=== PATIENT | female | born 1930 | race Two or more races ===

== ENCOUNTER 2016-12-16 22:06 | Inpatient (IN) | payer MEDICARE, MEDICAID ==
[~2016-12-16] VITALS: Ht 152.4 cm; Wt 63.0 kg
--- NOTE | 2016-12-16 01:00 | NUR ---
Patient complaining of pain at surgical site with pain scale of 10/10. Med Recon still not done. Called [facility] and spoke to Dr. Gibson who is section maintainer. Made aware of patient c/o pain. Went over all patients medications with MD and was given verbal order to continue all meds. Addendum: 12/17/16 at 0702 by JAJA PARRA RN Correction: Spoke with Dr. Gibson on 12/17 @ 1:00am
[2016-12-16 21:30] VITALS: BP 152/80
--- NOTE | 2016-12-16 21:30 | NUR ---
Patient admitted to unit via gurney with [facility] from [facility]. Received report from AYLIN Velasquez in ED. Patient with admitting diagnosis of Femur fracture, S/P surgery. Patient is alert and oriented. Verbally responsive. Able to make needs known. Denies any pain and discomfort at this time. No acute distress. No SOB. On room air. Son at bedside. Surgical site is clean and intact. No redness noted at site. No s/s of infection. Dressing is clean and intact. Skin is warm and dry to touch. Bruising noted around surgical site and on pubic area. Rash noted on right side of groin. No edema noted on bilateral extremities. Kept clean and dry. All needs attended to promptly. Call light within reach. Will continue to monitor.
--- NOTE | 2016-12-16 22:06 | NUR ---
Dr. Garza made aware of new admission and med reconciliation and said he will take care of it.
[2016-12-16] MEDS ORDERED: LEVO75TA7 PO (22:48)
[2016-12-16] MEDS ORDERED: TRAM50TA2 PO (22:48)
[2016-12-16] MEDS ORDERED: CLON0.1T PO (22:48)
[2016-12-16] MEDS ORDERED: SENN-18 PO (22:48)
[2016-12-16] MEDS ORDERED: OXYC-128 PO (22:48)
[2016-12-16] MEDS ORDERED: EZET10TA13 PO (22:48)
[2016-12-16] MEDS ORDERED: CLOP75TA33 PO (22:48)
[2016-12-16] MEDS ORDERED: METO-302 PO (22:48)
[2016-12-16] MEDS ORDERED: LOSA1TAB3 PO (22:48)
[2016-12-16] MEDS ORDERED: FENO145T20 PO (22:48)
[2016-12-16] MEDS ORDERED: DOCU100C36 PO (22:48)
[2016-12-16] MEDS ORDERED: SIMV20TA6 PO (22:48)
[2016-12-16] MEDS ORDERED: MAGN400O6 PO (22:48)
[2016-12-16] MEDS ORDERED: ACET-2154 PO (23:14)
[2016-12-17] MEDS: OXYCODONE/APAP 5-325 MG TABLET PO PRN ×2 (00:54→20:31)
[2016-12-17] MEDS ORDERED: OXYCODONE/APAP 5-325 MG TABLET ONE (01:05)
[2016-12-17] MEDS ORDERED: CLONIDINE HCL 0.1 MG TABLET PO PRN (07:30)
[2016-12-17] MEDS ORDERED: MAGNESIUM HYDROXIDE 30 ML LIQUID UDC PO PRN (07:30)
[2016-12-17 08:01] VITALS: BP 132/76
[2016-12-17] MEDS: DOCUSATE SODIUM 100 MG CAPSULE PO SCH ×2 (08:49→17:19)
[2016-12-17] MEDS: METOPROLOL SUCCINATE XL 25 MG TAB.SR.24H PO SCH (08:49)
[2016-12-17] MEDS: EZETIMIBE 10 MG TABLET PO SCH (08:50)
[2016-12-17] MEDS: LOSARTAN POTASSIUM 50 MG TABLET PO SCH (08:50)
[2016-12-17] MEDS: CLOPIDOGREL 75 MG TABLET PO SCH (08:50)
[2016-12-17] MEDS: HYDROCHLOROTHIAZIDE 12.5 MG CAPSULE PO SCH (08:50)
[2016-12-17] MEDS: LEVOTHYROXINE SODIUM 75 MCG TABLET PO SCH (08:54)
[2016-12-17] MEDS ORDERED: Medication Not On Formulary EA (Losartan/Hydrochlorothiazide (Hyzaar 50-12.5 Tablet) 1 E PO SCH (09:00)
[2016-12-17] MEDS: FENOFIBRATE NANOCRYSTALLIZED 145 MG TABLET PO SCH (12:08)
[2016-12-17] MEDS: ACETAMINOPHEN 325 MG TABLET PO PRN (12:33)
[2016-12-17] MEDS ORDERED: BISACODYL 10 MG SUPP.RECT RC PRN (18:30)
[2016-12-17] MEDS ORDERED: FLEET ENEMA 133 ML BOTTLE RC PRN (18:30)
--- NOTE | 2016-12-17 18:34 | NUR ---
pt assessed. pt continues to have constipation. pt given stool softeners. pt had small bowel movement. pt continues to ask for digital removal. asked dk for orders. fleet enema and bisacodyl suppository. pt had elevated bp during the day. pt given bp meds. other vitals stable. pt ate kosher food and diet adjusted to culture. pt had ot pt eval. pt is min assist in ambulating and mod assist on transfers. pt had good mobility. pt able to call for help. pt instructed to use call light whn needed. no signs of acute distress. will endorse to naval designer nurse.
--- NOTE | 2016-12-17 19:30 | NUR ---
RECEIVED PATIENT FROM DAY SHIFT NURSE. REPORT GIVEN AT BEDSIDE. PATIENT LYING IN BED WITH FAMILY MEMBER AT BEDSIDE. A/O WITH NO SIGNS OF PAIN OR DISTRESS. CALL LIGHT PLACED WITHIN REACH OF PATIENT. WILL CONTINUE TO MONITOR PATIENT THROUGH OUT SHIFT.
[2016-12-17] MEDS: SIMVASTATIN 20 MG TABLET PO SCH (20:31)
[2016-12-17] MEDS: SENNOSIDES 1 TABLET PO PRN (20:32)
[2016-12-17 20:56] VITALS: BP 154/85
[2016-12-18] MEDS: LEVOTHYROXINE SODIUM 75 MCG TABLET PO SCH (05:58)
--- NOTE | 2016-12-18 06:30 | NUR ---
pt s/p ORIF LEFT HIP.medicated with x1 percocet for pain, left hip swollen and bruising. uses bedpan to void,no bm overnight, vss, afebrile, all needs attended, call light at reached.
[2016-12-18 07:13] LABS: BASOPHILS % (AUTO) 0.3 % (0.0-2.0); EOSINOPHILS # (AUTO) 0.2 K/uL (0.0-0.7); EOSINOPHILS % (AUTO) 3.6 % (0.0-7.0); HEMATOCRIT 26.8 % (37-47); HEMOGLOBIN 9.1 G/DL (12.0-16.0); LYMPHOCYTES # (AUTO) 1.7 K/UL (0.8-4.8); LYMPHOCYTES % (AUTO) 28.5 % (20.5-51.5); MEAN CORPUSCULAR HEMOGLOBIN 29.8 UUG (27.0-31.0); MEAN CORPUSCULAR HGB CONC 34 g/dL (32.0-37.0); MEAN CORPUSCULAR VOLUME 88.3 FL (81.0-99.0); MONOCYTES # (AUTO) 0.6 K/UL (0.1-1.30); MONOCYTES % (AUTO) 9.4 % (0.0-11.0); NEUTROPHILS # (AUTO) 3.6 K/UL (1.8-8.9); NEUTROPHILS % (AUTO) 58.2 % (38.5-71.5); PLATELET COUNT (AUTO) 225 K/UL (150-450); RED BLOOD CELL COUNT(AUTO) 3.04 MIL/UL (4.2-5.4); WHITE BLOOD COUNT (AUTO) 6.1 K/UL (4.0-11.2)
[2016-12-18 07:27] LABS: THYROID STIMULATING HORMONE 8.085 mIU/mL (0.358-3.740)
[2016-12-18 07:58] LABS: ALANINE AMINOTRANSFERASE 28 U/L (14-59); ALKALINE PHOSPHATASE 56 U/L (50-136); ASPARTATE AMINOTRANSFERASE 22 U/L (15-37); BILIRUBIN,TOTAL 1.3 mg/dL (0.2-1.0); CARBON DIOXIDE 28 mmol/L (21-32); CHLORIDE 104 mmol/L (98-107); CHOLESTEROL 188 mg/dL (<200); CREATININE 0.7 mg/dL (0.6-1.3); GLUCOSE 96 mg/dL (74-106); HDL CHOLESTEROL 72 mg/dL (40-60); MAGNESIUM 1.4 mg/dL (1.8-2.4); PHOSPHOROUS 3.9 mg/dL (2.5-4.9); POTASSIUM 3.5 mmol/L (3.5-5.1); TOTAL PROTEIN, SERUM 5.7 g/dL (6.4-8.2); TRIGLYCERIDES 134 MG/DL (30-150); UREA NITROGEN, BLOOD 16 mg/dL (7-18)
[2016-12-18 08:22] VITALS: BP 156/92
[2016-12-18] MEDS: FENOFIBRATE NANOCRYSTALLIZED 145 MG TABLET PO SCH (08:30)
[2016-12-18] MEDS: DOCUSATE SODIUM 100 MG CAPSULE PO SCH ×2 (08:30→17:00)
[2016-12-18] MEDS: CLOPIDOGREL 75 MG TABLET PO SCH (08:30)
[2016-12-18] MEDS: HYDROCHLOROTHIAZIDE 12.5 MG CAPSULE PO SCH (08:30)
[2016-12-18] MEDS: EZETIMIBE 10 MG TABLET PO SCH (08:30)
[2016-12-18] MEDS: METOPROLOL SUCCINATE XL 25 MG TAB.SR.24H PO SCH (08:31)
[2016-12-18] MEDS: LOSARTAN POTASSIUM 50 MG TABLET PO SCH (08:31)
[2016-12-18] MEDS ORDERED: BISACODYL 10 MG SUPP.RECT RC PRN (09:45)
[2016-12-18] MEDS ORDERED: MAGNESIUM OXIDE 400 MG TABLET PO ONE (12:15)
[2016-12-18] MEDS ORDERED: POTASSIUM CHLORIDE 20 MEQ TAB.PRT.SR PO ONE (12:15)
[2016-12-18] MEDS ORDERED: METOPROLOL SUCCINATE XL 25 MG TAB.SR.24H PO ONE (12:18)
[2016-12-18] MEDS: OXYCODONE/APAP 5-325 MG TABLET PO PRN (13:25)
--- NOTE | 2016-12-18 18:35 | NUR ---
pt seen and continued to complain about stomach ache. pt given suppository. no impaction felt upon insertion. pt had bowel accident with liquid consistency. pt dressing changed. incision red. applied betadine and applied dressing. pt given percocet for pain. continued to monitor and assisted to need. pt continues to be anxious. bruises started to resolve. will endorse new orders to night [facility] nurse.
--- NOTE | 2016-12-18 19:00 | NUR ---
RECEIVED PT SITTING ON CHAIR. AAO X4. FAMILY ON BEDSIDE. NO SIGNS OF ACUTE DISTRESS NOTED. SAFETY MEASURES MAINTAINED. CALL LIGHT WITHIN REACH. WILL CONTINUE TO MONITOR.
[2016-12-18 20:41] VITALS: BP 126/68
[2016-12-18] MEDS: ACETAMINOPHEN 325 MG TABLET PO PRN (21:26)
[2016-12-18] MEDS: SIMVASTATIN 20 MG TABLET PO SCH (21:26)
--- NOTE | 2016-12-19 05:32 | NUR ---
PT SLEPT COMFORTABLY IN BED. WOKE UP ONCE TO USE THE RESTROOM AND PERFORMED HYGIENE. PT ABLE TO MAKE NEEDS KNOWN. NO SIGNS OF ACUTE DISTRESS NOTED. NO C/O OF PAIN. VITAL SIGNS WNL. SAFETY MEASURES MAINTAINED. CALL LIGHT WITHIN REACH. CONTINUE TO MONITOR.
[2016-12-19] MEDS: LEVOTHYROXINE SODIUM 88 MCG TABLET PO SCH (06:23)
[2016-12-19] MEDS ORDERED: LEVOTHYROXINE SODIUM 75 MCG TABLET PO SCH (07:00)
[2016-12-19 08:38] VITALS: BP 133/72
[2016-12-19] MEDS: HYDROCHLOROTHIAZIDE 12.5 MG CAPSULE PO SCH (09:50)
[2016-12-19] MEDS: LOSARTAN POTASSIUM 50 MG TABLET PO SCH (09:51)
[2016-12-19] MEDS: CLOPIDOGREL 75 MG TABLET PO SCH (09:51)
[2016-12-19] MEDS: OXYCODONE/APAP 5-325 MG TABLET PO PRN (09:51)
[2016-12-19] MEDS: EZETIMIBE 10 MG TABLET PO SCH (09:51)
[2016-12-19] MEDS: METOPROLOL SUCCINATE XL 50 MG TAB.SR.24H PO SCH (09:52)
[2016-12-19] MEDS: DOCUSATE SODIUM 100 MG CAPSULE PO SCH ×2 (09:52→18:00)
[2016-12-19] MEDS: ACETAMINOPHEN 325 MG TABLET PO PRN (14:06)
--- NOTE | 2016-12-19 14:19 | NUR ---
DAILY NOTE SON KEV SPOKE TO ME AND STATES THAT THEY WANT TO TAKE HER HOME FOR THE [facility] ON Tuesday12/22/16 AROUND 1700 AND BRING HER BACK AROUND 2200. THEY WANT TO TAKE HER TO HER SON CHUYITA'S HOME [address] [place] [address]. I INFORMED HIM IT HAS TO BE CLEARED BY THE MD BUT IS POSSIBLE. KEV PHONE #[phone]
--- NOTE | 2016-12-19 19:30 | NUR ---
RECEIVED PATIENT FROM DAY SHIFT NURSE. SHIFT REPORT GIVEN AT BEDSIDE. FAMILY AT BEDSIDE. PATIENT A/O WITH NO SIGNS OF PAIN OR DISTRESS. PERTINENT ASSESSMENTS DONE. CALL LIGHT PLACED WITHIN REACH OF PATIENT. WILL CONTINUE TO MONITOR PATIENT THROUGH OUT SHIFT.
[2016-12-19 20:14] VITALS: BP 128/66
[2016-12-19] MEDS: SIMVASTATIN 20 MG TABLET PO SCH (20:16)
[2016-12-20] MEDS: LEVOTHYROXINE SODIUM 88 MCG TABLET PO SCH (06:22)
--- NOTE | 2016-12-20 06:59 | NUR ---
PATIENT SLEPT COMFORTABLY THROUGH OUT SHIFT. NO SIGNS OF PAIN OR DISTRESS. ALL MEDICATIONS GIVEN ORDERED. ALL NEEDS ATTENDED THROUGH OUT SHIFT. SHIFT REPORT TO DAY SHIFT NURSE.
[2016-12-20 07:30] VITALS: BP 139/81
--- NOTE | 2016-12-20 07:45 | NUR ---
PT WAS SEEN BY DR. NORRIS. PT CONTINUES TO NOT HAVE BOWEL MOVEMENT. DR. NORRIS ORDERED TO GIVE SENNA AND SUPPOSITORY BISACODYL TONIGHT. PT'S REQUEST TO GET OUT ON PASS ON 12/22/16 FROM 1700 TO 2200 FOR [facility] HAS ALSO BEEN APPROVED. Addendum: 12/21/16 at 0250 by Darcy Cruz RN NOTE IS FOR 12/20/2016 TIME: 1944
[2016-12-20 07:51] LABS: ALANINE AMINOTRANSFERASE 26 U/L (14-59); ALKALINE PHOSPHATASE 68 U/L (50-136); ASPARTATE AMINOTRANSFERASE 21 U/L (15-37); BILIRUBIN,TOTAL 1.1 mg/dL (0.2-1.0); CARBON DIOXIDE 26 mmol/L (21-32); CHLORIDE 103 mmol/L (98-107); CREATININE 0.6 mg/dL (0.6-1.3); GLUCOSE 90 mg/dL (74-106); MAGNESIUM 1.7 mg/dL (1.8-2.4); PHOSPHOROUS 3.6 mg/dL (2.5-4.9); POTASSIUM 3.9 mmol/L (3.5-5.1); TOTAL PROTEIN, SERUM 5.8 g/dL (6.4-8.2); UREA NITROGEN, BLOOD 19 mg/dL (7-18)
--- NOTE | 2016-12-20 08:00 | NUR ---
Received patient awake, alert and oriented x4. Assisted to bathroom. Able to transfer with minimum assistance. Tolerated breakfast well.
[2016-12-20 08:21] LABS: RED BLOOD CELL COUNT(AUTO) 2.92 MIL/UL (4.2-5.4); WHITE BLOOD COUNT (AUTO) 6.9 K/UL (4.0-11.2)
[2016-12-20 08:22] LABS: EOSINOPHILS % (AUTO) 3.8 % (0.0-7.0); HEMOGLOBIN 8.8 G/DL (12.0-16.0); LYMPHOCYTES % (AUTO) 33.5 % (20.5-51.5); MEAN CORPUSCULAR HEMOGLOBIN 30.1 UUG (27.0-31.0); MEAN CORPUSCULAR HGB CONC 34 g/dL (32.0-37.0); MEAN CORPUSCULAR VOLUME 89.1 FL (81.0-99.0); MONOCYTES % (AUTO) 8.4 % (0.0-11.0); PLATELET COUNT (AUTO) 239 K/UL (150-450)
[2016-12-20 08:23] LABS: BASOPHILS % (AUTO) 0.3 % (0.0-2.0)
[2016-12-20] MEDS: DOCUSATE SODIUM 100 MG CAPSULE PO SCH ×2 (09:00→17:11)
[2016-12-20] MEDS: LOSARTAN POTASSIUM 50 MG TABLET PO SCH (09:46)
[2016-12-20] MEDS: HYDROCHLOROTHIAZIDE 12.5 MG CAPSULE PO SCH (09:46)
[2016-12-20] MEDS: CLOPIDOGREL 75 MG TABLET PO SCH (09:46)
[2016-12-20] MEDS: ACETAMINOPHEN 325 MG TABLET PO PRN ×2 (09:47→17:11)
[2016-12-20] MEDS: METOPROLOL SUCCINATE XL 50 MG TAB.SR.24H PO SCH (09:47)
[2016-12-20] MEDS: EZETIMIBE 10 MG TABLET PO SCH (09:47)
--- NOTE | 2016-12-20 10:00 | NUR ---
Pain over surgical site left femur noted rated as 6/10. Tylenol PRN given. Up with NAVAL AIRCREWMAN HELICOPTER for shower. Up with occupational therapy. Tolerating therapy well.
[2016-12-20] MEDS ORDERED: MAGNESIUM OXIDE 400 MG TABLET PO ONE (13:15)
--- NOTE | 2016-12-20 13:54 | NUR ---
Dressing changed, wound care done. Wound healing well.
--- NOTE | 2016-12-20 17:30 | NUR ---
Patient complained of pain rated as 6/10 over left femur. PRN Tylenol given. Up in chair for dinner. Call light within reach
--- NOTE | 2016-12-20 19:00 | NUR ---
RECEIVED PT RESTING IN BED. AAO X4. NO ACUTE DISTRESS NOTED. SAFETY MEASURES MAINTAINED. CALL LIGHT WITHIN REACH. CONTINUE TO MONITOR.
--- NOTE | 2016-12-20 19:45 | NUR ---
PT WAS SEEN BY DR. NORRIS. PT CONTINUES TO NOT HAVE BOWEL MOVEMENT. DR. NORRIS ORDERED TO GIVE SENNA AND SUPPOSITORY BISACODYL TONIGHT. PT'S REQUEST TO GET OUT ON PASS ON 12/22/16 FROM 1700 TO 2200 FOR [facility] HAS ALSO BEEN APPROVED.
[2016-12-20 20:24] VITALS: BP 141/83
[2016-12-20] MEDS: SENNOSIDES 1 TABLET PO PRN (20:35)
[2016-12-20] MEDS: SIMVASTATIN 20 MG TABLET PO SCH (20:35)
--- NOTE | 2016-12-20 20:37 | NUR ---
PT WAS GIVEN SUPPOSITORY. NO IMPACTION FELT DURING INSERTION. NO ACUTE DISTRESS NOTED. WILL CONTINUE TO MONITOR.
--- NOTE | 2016-12-21 05:45 | NUR ---
PT INTERMITTENTLY SLEPT T/O THE NIGHT. WOKE UP THREE TIMES; TWICE TO USE THE RESTROOM AND ONCE TO CHANGE POSITION. NO BOWEL MOVEMENT OF THIS TIME. WILL ENDORSE THIS CONCERN TO DAY SHIFT RN. DRESSING ON THE LEFT HIP DRY, CLEAN, AND INTACT. NO ACUTE DISTRESS NOTED. NO C/O OF PAIN. V/S WNL. ALL NEEDS ATTENDED T/O THE SHIFT. SAFETY MEASURES MAINTAINED. CALL LIGHT WITHIN REACH. CONTINUE TO MONITOR.
[2016-12-21] MEDS: LEVOTHYROXINE SODIUM 88 MCG TABLET PO SCH (06:19)
[2016-12-21] MEDS: SENNOSIDES/DOCUSATE SODIUM TABLET PO SCH ×2 (06:19→17:00)
--- NOTE | 2016-12-21 07:35 | NUR ---
PATIENT NOTED IN BED RESTING, REPORT RECEIVED FROM ATTENDING RADIOLOGIST NURSE, NO SIGNS OF DISTRESS NOTED, STATES PAIN LEVEL IS A 6/10, CALL LIGHT IN REACH, BED LOCKED AND IN LOWEST POSITION, STATES SHE WOULD LIKE TO TAKE MORNING MEDICATIONS AFTER SHE EATS BREAKFAST.
[2016-12-21 08:08] VITALS: BP 137/80
[2016-12-21] MEDS: HYDROCHLOROTHIAZIDE 12.5 MG CAPSULE PO SCH (08:32)
[2016-12-21] MEDS: CLOPIDOGREL 75 MG TABLET PO SCH (08:34)
[2016-12-21] MEDS: METOPROLOL SUCCINATE XL 50 MG TAB.SR.24H PO SCH (08:34)
[2016-12-21] MEDS: LOSARTAN POTASSIUM 50 MG TABLET PO SCH (08:34)
[2016-12-21] MEDS: EZETIMIBE 10 MG TABLET PO SCH (08:35)
[2016-12-21] MEDS: OXYCODONE/APAP 5-325 MG TABLET PO PRN (08:35)
[2016-12-21] MEDS ORDERED: MIRALAX 17 GM POWD.PACK PO SCH (09:00)
[2016-12-21] MEDS: ACETAMINOPHEN 325 MG TABLET PO PRN ×2 (14:30→22:05)
--- NOTE | 2016-12-21 19:10 | NUR ---
PATIENT LAYING IN BED, REPORT GIVEN TO BENEFIT DIRECTOR NURSE, FAMILY AT BED SIDE, NO COMPLAINTS OF PAIN AT THIS TIME, RESTING IN BED, NO SIGNS OF DISTRESS.
--- NOTE | 2016-12-21 19:54 | NUR ---
RECEIVED PATIENT AWAKE ALERT AND ORIENTED X4. DAUGHTER AT BEDSIDE. NEEDS ATTENDED. LEFT HIP DRESSING CLEAN DRY AND INTACT. NO ACUTE DISTRESS NOTED. DENIES ANY PAIN AT THIS TIME. MAKING NEEDS KNOWN. CONTINENT OF BOWEL AND BLADDER.
[2016-12-21 20:36] VITALS: BP 128/66
[2016-12-21] MEDS: SIMVASTATIN 20 MG TABLET PO SCH (20:36)
[2016-12-22] MEDS: SENNOSIDES/DOCUSATE SODIUM TABLET PO SCH ×2 (05:37→18:09)
[2016-12-22] MEDS: LEVOTHYROXINE SODIUM 88 MCG TABLET PO SCH (05:42)
--- NOTE | 2016-12-22 05:52 | NUR ---
quiet night. had tylenol 650 mg po given for pain on the left hip. slept well most of the shift. will monitor patient. kept comfortable. no acute distress noted. voiding without any difficulty.
[2016-12-22 07:30] VITALS: BP 166/87
[2016-12-22] MEDS: EZETIMIBE 10 MG TABLET PO SCH (09:08)
[2016-12-22] MEDS: CLOPIDOGREL 75 MG TABLET PO SCH (09:09)
[2016-12-22] MEDS: METOPROLOL SUCCINATE XL 50 MG TAB.SR.24H PO SCH (09:09)
[2016-12-22] MEDS: HYDROCHLOROTHIAZIDE 12.5 MG CAPSULE PO SCH (09:09)
[2016-12-22] MEDS: LOSARTAN POTASSIUM 50 MG TABLET PO SCH (09:10)
--- NOTE | 2016-12-22 13:42 | NUR ---
Interdisciplinary Rehab Summary
--- NOTE | 2016-12-22 14:11 | NUR ---
Correctional Program Officer Bio: SW met with with pt at [facility] to assess for needs and provide support. Pt is an 86-year-old female who sustained a fracture of her left femur mid shaft. Pt was admitted to ARU due to functional decline and impaired mobility. Per pt's chart, pt's premorbid level of function was independent. Pt reported that she is still experiencing pain from the surgery. Psych: Pt appeared alert and oriented x4 during interview. She presented as somewhat anxious, but is cooperative and pleasant. Pt stated that she feels "okay" and is happy to be in the hospital. Pt has been in the hospital since December 16, 2016. There is no mental illness history reported. Pt appears to be coping well with hospital stay. Social: Pt is and has 5 children. Pt's 26 years ago. Pt's [id number] was present at beside during interview. Pt reported that she has many grandchildren and that they will be visiting. Pt stated that she feels very supported. Goals: Pt reported that she would like to improve her walking. Pt stated that she does not like her walker. SS: SW engaged in active listening. SW provided emotional support and counseling. SW will continue to assess for needs and provide community referrals if needed. SW will encourage pt to comply with rehab goals.
[2016-12-22] MEDS: DICYCLOMINE HCL 10 MG CAPSULE PO SCH ×3 (14:13→23:47)
[2016-12-22] MEDS: ACETAMINOPHEN 325 MG TABLET PO PRN ×2 (14:27→20:32)
--- NOTE | 2016-12-22 18:50 | NUR ---
PATIENT LYING IN BED WITH FAMILY AT BED SIDE, NO COMPLAINTS OF PAIN AT THIS TIME, NO SIGNS OF DISTRESS NOTED, CALL LIGHT IN REACH, BED LOCKED AND IN LOWEST POSITION, NEW ORDERS FOR BENTYL FOR PATIENTS COMPLAINT OF STOMACH PAIN AND CONSTIPATION.
--- NOTE | 2016-12-22 19:30 | NUR ---
Received pt in bed, awake alert and oriented. Verbally responsive and able to make needs known. No acute distress noted. No complaints of pain or discomfort. All safety precautions and fall preventions maintained. Call light within reach. Will continue to monitor. Bed locked, in lowest position with side rails up x 2.
[2016-12-22] MEDS: SIMVASTATIN 20 MG TABLET PO SCH (20:32)
[2016-12-22 20:48] VITALS: BP 137/73
[2016-12-23] MEDS: ACETAMINOPHEN 325 MG TABLET PO PRN ×2 (02:35→10:48)
[2016-12-23] MEDS: LEVOTHYROXINE SODIUM 88 MCG TABLET PO SCH (06:37)
[2016-12-23] MEDS: SENNOSIDES/DOCUSATE SODIUM TABLET PO SCH ×2 (06:37→17:00)
[2016-12-23] MEDS: DICYCLOMINE HCL 10 MG CAPSULE PO SCH ×4 (06:37→23:59)
--- NOTE | 2016-12-23 07:20 | NUR ---
Pt slept well throughout shift. No acute distress noted. No further complaints of discomfort. Tolerated all medications well. All safety precautions and fall preventions maintained. Bed locked, in lowest position and side rails up x 2. Call light within reach.
--- NOTE | 2016-12-23 07:45 | NUR ---
Received patient awake, alert and oriented. Sitting in in chair ready for breakfast. Call light within reach. No complaints of pain/ discomfort at this time. Not in any form of distress.
[2016-12-23] MEDS: HYDROCHLOROTHIAZIDE 12.5 MG CAPSULE PO SCH (08:41)
[2016-12-23] MEDS: EZETIMIBE 10 MG TABLET PO SCH (08:41)
[2016-12-23] MEDS: METOPROLOL SUCCINATE XL 50 MG TAB.SR.24H PO SCH (08:41)
[2016-12-23] MEDS: CLOPIDOGREL 75 MG TABLET PO SCH (08:41)
[2016-12-23] MEDS: LOSARTAN POTASSIUM 50 MG TABLET PO SCH (08:41)
[2016-12-23 08:46] VITALS: BP 139/70
--- NOTE | 2016-12-23 10:48 | NUR ---
Up with occupational therapy. Facial grimacing on movements. Offered pain medications. PRN Tylenol given.
[2016-12-23] MEDS: NEOMY/BACITRAC/POLYMI OINT 28.35 GM TUBE TOP SCH ×2 (12:04→17:04)
--- NOTE | 2016-12-23 14:40 | NUR ---
Up with physical therapy. With pain over left leg, grimacing during movements rated pain as 8/10. Percocet given.
[2016-12-23] MEDS: OXYCODONE/APAP 5-325 MG TABLET PO PRN (14:42)
--- NOTE | 2016-12-23 19:27 | NUR ---
Received pt in bed, awake alert and oriented. Family member at bedside. No apparent distress noted. Denies pain or discomfort at this time. Pt is verbally responsive and able to make needs known. All safety measures and fall precautions maintained. Call light within reach. Bed locked, in lowest position and side rails up x 2. Will continue to monitor.
[2016-12-23 20:00] VITALS: BP 136/68
--- NOTE | 2016-12-23 20:30 | NUR ---
Dr. Lopez in to see pt. Removed dressing to see surgical site. New MD orders noted and carried out. Changed dressing as ordered, cleaned with saline and pat dry. Covered with Mepilex as ordered. Pt tolerated procedure well.
[2016-12-23] MEDS: SIMVASTATIN 20 MG TABLET PO SCH (20:50)
[2016-12-24] MEDS: ACETAMINOPHEN 325 MG TABLET PO PRN ×3 (00:34→20:35)
[2016-12-24] MEDS: DICYCLOMINE HCL 10 MG CAPSULE PO SCH ×4 (06:21→23:30)
[2016-12-24] MEDS: LEVOTHYROXINE SODIUM 88 MCG TABLET PO SCH (06:21)
[2016-12-24] MEDS: SENNOSIDES/DOCUSATE SODIUM TABLET PO SCH ×2 (06:21→17:29)
[2016-12-24] MEDS: HYDROCORTISONE 1% CREAM 30 GM TUBE TP PRN (06:22)
--- NOTE | 2016-12-24 07:05 | NUR ---
Pt slept well most of the shift. Tolerated PM medications well. AM medications given, but vomited x 1 yellow-clear emesis. V/S 146/72, 74, 18, 96%, 98.0 degrees. Denies pain or discomfort at this time. Dressing change done per MD order. Stockinette applied to prevent Mepilex from coming off. All safety measures and fall precautions maintained. Call light within reach. Endorsed to day shift nurse.
[2016-12-24 08:36] VITALS: BP 146/72
[2016-12-24] MEDS: NEOMY/BACITRAC/POLYMI OINT 28.35 GM TUBE TOP SCH ×2 (09:00→17:30)
[2016-12-24] MEDS: LOSARTAN POTASSIUM 50 MG TABLET PO SCH (09:00)
[2016-12-24] MEDS: CLOPIDOGREL 75 MG TABLET PO SCH (09:00)
[2016-12-24] MEDS: HYDROCHLOROTHIAZIDE 12.5 MG CAPSULE PO SCH (09:00)
[2016-12-24] MEDS: EZETIMIBE 10 MG TABLET PO SCH (09:01)
[2016-12-24] MEDS: METOPROLOL SUCCINATE XL 50 MG TAB.SR.24H PO SCH (09:01)
--- NOTE | 2016-12-24 11:38 | NUR ---
PT STABLE WHEN ASSESSED. BP SLIGHTLY ELEVATED. MEDS PROVIDED. PT ATE BREAKFAST. PT WENT TO THE BATHROOM WITH MINIMUM ASSIST. REASSESED WOUND SITE. REDNESS SEEN. WILL REAPPLY MEPILEX AND BATICARIN CREAM REQUESTED. PT REQUEST NOT TO HAVE LUNCH AND DINNER TRAY DELIVERED. PT COMPLAINS OF ITCHINESS ON SITE. WILL REAPPLY HYTONE CREAM. WILL CONTINUE TO MONITOR.
--- NOTE | 2016-12-24 12:04 | NUR ---
PT HAD XRAY HIP DONE IN AM. RESULTS: Left humeral shaft fracture status post internal fixation. No hardware fracture or loosening. Anatomic alignment of the fracture site with mild adjacent callus formation. WILL CONTINUE TO MONITOR FOR COMPLICATIONS.
--- NOTE | 2016-12-24 19:23 | NUR ---
pt stable throughtout shift. no signs of acute distress. pt continues to have an itch on incision site. site changed and applied antibiotic. pt complains of no stomach ache. assisted as needed. all meds taken. pt ate interminently throughout the day. pt continues to ask for help ask as needed. will endorse new orders to steel layer nurse.
--- NOTE | 2016-12-24 19:30 | NUR ---
Received pt on bed alert, awake and oriented x3. Able to make needs known. Family at bedside during this time. No acute distress noted. Breathing even and unlabored with normal respirations. Dressing on surgical site changed as ordered, pt tolerated procedure well. Assisted to the bathroom. Vital signs stable. Call light within reach. All needs attended. Will continue to monitor.
[2016-12-24 19:45] VITALS: BP 119/73
[2016-12-24] MEDS: SIMVASTATIN 20 MG TABLET PO SCH (20:35)
[2016-12-25] MEDS: OXYCODONE/APAP 5-325 MG TABLET PO PRN ×3 (00:49→16:18)
--- NOTE | 2016-12-25 06:07 | NUR ---
Pt slept well throughout the shift. Complained of 5/10 left hip pain, medicated with percocet as ordered. Verbalized relief. No apparent distress noted. Assisted to the bathroom x3. Safety precautions observed. All needs met.
[2016-12-25] MEDS: LEVOTHYROXINE SODIUM 88 MCG TABLET PO SCH (06:25)
[2016-12-25] MEDS: SENNOSIDES/DOCUSATE SODIUM TABLET PO SCH ×2 (06:25→17:30)
[2016-12-25] MEDS: DICYCLOMINE HCL 10 MG CAPSULE PO SCH ×4 (06:25→23:11)
[2016-12-25 06:36] LABS: BASOPHILS % (AUTO) 0.8 % (0.0-2.0); EOSINOPHILS # (AUTO) 0.2 K/uL (0.0-0.7); EOSINOPHILS % (AUTO) 3.3 % (0.0-7.0); HEMATOCRIT 25.7 % (31.2-41.9); LYMPHOCYTES # (AUTO) 2.1 K/uL (20.0-40.0); LYMPHOCYTES % (AUTO) 36.8 % (20.5-51.5); MEAN CORPUSCULAR HEMOGLOBIN 30.7 uug (24.7-32.8); MEAN CORPUSCULAR HGB CONC 35 g/dL (32.3-35.6); MEAN CORPUSCULAR VOLUME 88.3 fL (75.5-95.3); MONOCYTES # (AUTO) 0.4 K/uL (2.0-10.0); MONOCYTES % (AUTO) 7.6 % (0.0-11.0); NEUTROPHILS # (AUTO) 2.9 K/uL (1.8-8.9); NEUTROPHILS % (AUTO) 51.5 % (38.5-71.5); PLATELET COUNT (AUTO) 247 K/uL (179-408); RED BLOOD CELL COUNT(AUTO) 2.92 MIL/uL (3.63-4.92); WHITE BLOOD COUNT (AUTO) 5.7 K/uL (3.8-11.8)
[2016-12-25 07:09] LABS: CARBON DIOXIDE 26 mmol/L (21-32); CHLORIDE 103 mmol/L (98-107); CREATININE 0.6 mg/dL (0.6-1.3); GLUCOSE 92 mg/dL (74-106); POTASSIUM 3.7 mmol/L (3.5-5.1); UREA NITROGEN, BLOOD 17 mg/dL (7-18)
--- NOTE | 2016-12-25 07:40 | NUR ---
Received patient awake, alert and oriented. Sitting at chair. Ready for breakfast. Not in any form of distress.
[2016-12-25 08:00] VITALS: BP 131/80
[2016-12-25] MEDS: METOPROLOL SUCCINATE XL 50 MG TAB.SR.24H PO SCH (09:27)
[2016-12-25] MEDS: EZETIMIBE 10 MG TABLET PO SCH (09:27)
[2016-12-25] MEDS: CLOPIDOGREL 75 MG TABLET PO SCH (09:27)
[2016-12-25] MEDS: HYDROCHLOROTHIAZIDE 12.5 MG CAPSULE PO SCH (09:27)
[2016-12-25] MEDS: HYDROCORTISONE 1% CREAM 30 GM TUBE TP PRN (09:28)
[2016-12-25] MEDS: NEOMY/BACITRAC/POLYMI OINT 28.35 GM TUBE TOP SCH ×2 (09:28→17:29)
[2016-12-25] MEDS: LOSARTAN POTASSIUM 50 MG TABLET PO SCH (09:28)
--- NOTE | 2016-12-25 09:30 | NUR ---
Pain over surgical site and left knee. Rated as 8/10. PRN pain medication given.
--- NOTE | 2016-12-25 10:00 | NUR ---
Surgical dressing changed, wound more red. Informed Dr. Pham, Bactrim DS PO BID x 10 days ordered. Patient complained of nausea and medications feel like being stuck in throat, esophagram ordered.
[2016-12-25] MEDS ORDERED: OXYCODONE/APAP 5-325 MG TABLET PO PRN (17:00)
[2016-12-25] MEDS ORDERED: diphenhydrAMINE 25 MG CAP PO PRN (17:15)
[2016-12-25] MEDS: SULFAMETH/TRIMETH 800/160 MG TABLET PO SCH (17:30)
[2016-12-25] MEDS: OXYCODONE/APAP 5-325 MG TABLET PO SCH ×2 (17:32→20:22)
--- NOTE | 2016-12-25 17:33 | NUR ---
Still complaints of itching over surgical site. Dr Lopez informed, Benadryl prescribed and given.
--- NOTE | 2016-12-25 19:30 | NUR ---
PT ALERT AND ORIENTED IN BED. NO DISTRESS NOTED. COMPLAINING OF PAIN IN LEFT UPPER LEG. INCISION INTACT, DRESSING INTACT AND REINFORCED. SAFETY MAINTAINED. CALL LIGHT WITHIN REACH. WILL CONTINUE TO MONITOR.
[2016-12-25 20:00] VITALS: BP 141/71
[2016-12-25] MEDS: SIMVASTATIN 20 MG TABLET PO SCH (20:22)
[2016-12-26] MEDS: LEVOTHYROXINE SODIUM 88 MCG TABLET PO SCH (06:08)
[2016-12-26] MEDS: SENNOSIDES/DOCUSATE SODIUM TABLET PO SCH ×2 (06:08→17:00)
[2016-12-26] MEDS: DICYCLOMINE HCL 10 MG CAPSULE PO SCH ×4 (06:08→23:27)
--- NOTE | 2016-12-26 06:43 | NUR ---
PT ALERT AND ORIENTED IN BED. NO DISTRESS NOTED. DRESSINGS CHANGED. COMPLIANT WITH NURSING CARE AND MEDICATIONS. CALL LIGHT WITHIN REACH. SAFETY MAINTAINED.
[2016-12-26] MEDS: OXYCODONE/APAP 5-325 MG TABLET PO SCH ×2 (09:00→13:00)
[2016-12-26] MEDS: NEOMY/BACITRAC/POLYMI OINT 28.35 GM TUBE TOP SCH ×2 (09:20→17:36)
[2016-12-26] MEDS: SULFAMETH/TRIMETH 800/160 MG TABLET PO SCH ×2 (09:21→17:00)
[2016-12-26] MEDS: METOPROLOL SUCCINATE XL 50 MG TAB.SR.24H PO SCH (09:21)
[2016-12-26] MEDS: EZETIMIBE 10 MG TABLET PO SCH (09:21)
[2016-12-26] MEDS: HYDROCORTISONE 1% CREAM 30 GM TUBE TP PRN (09:21)
[2016-12-26] MEDS: CLOPIDOGREL 75 MG TABLET PO SCH (09:21)
[2016-12-26] MEDS: HYDROCHLOROTHIAZIDE 12.5 MG CAPSULE PO SCH (09:22)
[2016-12-26] MEDS: LOSARTAN POTASSIUM 50 MG TABLET PO SCH (09:23)
[2016-12-26 10:12] VITALS: BP 139/74
--- NOTE | 2016-12-26 13:00 | NUR ---
Patient was seen and examined by Dr. Pham with new orders of Zofran 4 mg 1 tab PO every 6 hours PRN for nausea/ vomiting and Pepcid 20 mg 1 tab PO Daily with patient and family at bedside. Informed Dr. Pham regarding family's request to call Dr. Sánchez (Surgeon).
[2016-12-26] MEDS: ACETAMINOPHEN 325 MG TABLET PO PRN ×2 (14:18→20:17)
[2016-12-26] MEDS: ONDANSETRON HCL 4 MG TABLET PO PRN ×2 (14:18→15:56)
--- NOTE | 2016-12-26 17:17 | NUR ---
DAILY NOTE PER MD NISA VILLELA TO D/C PERCOCET. GIVE TYLENOL FOR PAIN. PT NAUSEOUS MOST OF DAY . MOSTLY DRY HEAVED. 100ML OF EMESIS IN TOTAL FOR THE SHIFT. CLEAR IN COLOR WITH SMALL BIT OF FOOD FROM LUNCH. PT ONLY TOOK PAIN MED, ATE MINIMAL. WITH SIPS OF WATER. ZOFRAN GIVEN ORDERED NO MORE EMESIS SINCE THEN.
--- NOTE | 2016-12-26 17:38 | NUR ---
MEDICATION NOTE SHE REFUSED HER EVENING MEDS SAYS SHE DOES NOT WANT ANYTHING TO MAKE HER STOMACH UPSET RIGHT NOW. B/P STABLE 134/82. SHE STATES SHE IS FEELING BETTER. ATE 25% OF DINNER. IS TOLERATING IT WELL AT THIS TIME
--- NOTE | 2016-12-26 18:42 | NUR ---
MEAL NOTE FEELING NAUSEOUS MOST OF THE DAY TODAY. SM AMOUNT OF EMESIS. DRY HEAVING AND UNABLE TO EDWIGE MUCH FOOD. SHE ATE SMALL AMOUNTS AND TOOK SIPS OF WATER IN ATTEMPTS NOT TO IRRITATE HER STOMACH TOO MUCH. SHE IS NOW RESTING QUIETLY. Addendum: 12/26/16 at 1845 by Glenis Flores RN Amended: Links added.
[2016-12-26] MEDS: SIMVASTATIN 20 MG TABLET PO SCH (20:24)
--- NOTE | 2016-12-26 20:24 | NUR ---
RECEIVED PATIENT AAOX 4 FEELING NAUSEOUS BUT REFUSED TO TAKE ANY MEDICINES. COMPLAINED OF PAIN ON THE LEFT HIP TYLENOL 650 MG GIVEN. REFUSED TO TAKE SIMVASTATIN 20 MG. SHE SAID THAT WILL MAKE HER VOMIT.
[2016-12-26 20:49] VITALS: BP 135/56
[2016-12-26 20:54] VITALS: BP 135/56
--- NOTE | 2016-12-26 23:29 | NUR ---
REFUSED TO TAKE HER MEDS, SAYS SHE DONT NEED IT. MAKES HER SICK.
[2016-12-27] MEDS: ACETAMINOPHEN 325 MG TABLET PO PRN ×2 (06:23→22:06)
[2016-12-27] MEDS: ONDANSETRON HCL 4 MG TABLET PO PRN (06:23)
[2016-12-27] MEDS: DICYCLOMINE HCL 10 MG CAPSULE PO SCH ×3 (06:23→17:37)
[2016-12-27] MEDS: SENNOSIDES/DOCUSATE SODIUM TABLET PO SCH ×2 (06:24→17:36)
[2016-12-27] MEDS: LEVOTHYROXINE SODIUM 88 MCG TABLET PO SCH (06:24)
--- NOTE | 2016-12-27 06:33 | NUR ---
patient been up all night. says could'nt sleep. needs attended.refused meds. OOB in chair this morning. @0630 c/o of chestpain mid sternal, says on a scale of 1-10 its a 5/10. Vital signs taken and recorded. BP 124/73 HR 92 resp 18 temp 98.2 pulse ox 97% on RA.Assisted back in bed. Nursing airport skilled maintenance supervisor aware, came over and reassess the patient. Tylenol given with Jl and explained it will help with her nausea . Took all her meds this am and patient says feels a little bit better. Will monitor patient. HR 60 BP 126/75 resp 17 temp 98.2 pulse ox 97%.Will monitor patient.
[2016-12-27] MEDS: SULFAMETH/TRIMETH 800/160 MG TABLET PO SCH ×2 (08:46→17:36)
[2016-12-27] MEDS: FAMOTIDINE 20 MG TABLET PO SCH (08:47)
[2016-12-27] MEDS: HYDROCHLOROTHIAZIDE 12.5 MG CAPSULE PO SCH (08:47)
[2016-12-27] MEDS: METOPROLOL SUCCINATE XL 50 MG TAB.SR.24H PO SCH (09:00)
[2016-12-27] MEDS: EZETIMIBE 10 MG TABLET PO SCH (09:00)
[2016-12-27] MEDS: CLOPIDOGREL 75 MG TABLET PO SCH (09:00)
[2016-12-27] MEDS: LOSARTAN POTASSIUM 50 MG TABLET PO SCH (09:00)
[2016-12-27] MEDS: NEOMY/BACITRAC/POLYMI OINT 28.35 GM TUBE TOP SCH ×2 (09:24→17:37)
--- NOTE | 2016-12-27 14:25 | NUR ---
DAILY NOTE OUT ON PASS WITH FAMILY TO MD ROGEL'S OFFICE FOR ORTHO APPT F/U. FAMILY TRAINED ON HOW TO GET HER IN AND OUT OF THE VEHICLE WITH PHYSICAL THERAPY. PASS PAPER WORK SIGNED BY DAUGHTER. PT IS EXPECTED TO RETURN BY 1700
--- NOTE | 2016-12-27 16:25 | NUR ---
RECEIVED A CALL FROM MD ROGEL STATING THAT HE DOES NOT BELIEVE THE MIDDLE PART OF THE INCISION IS INFECTED HE BELIEVES THERE IS A REACTION TO THE DRSG POSSIBLY. HE ALSO STATES A ROUND OF ATB COULD ALSO BE BENEFICIAL TO HER. SUGGESTS D/CING THE BACTRIM DUE TO IT IRRITATING HER STOMACH AND SWITCHING TO KEFLEX 500MG QID PO. SUGGESTS THAT I PASS THIS INFO ON TO MD NORRIS AND THE HOSPITALIST CARING FOR HER
--- NOTE | 2016-12-27 17:14 | NUR ---
RETURNED FROM HER MD APPT WITH FAMILY IN NO ACUTE DISTRESS. NO C/O PAIN. CALLED MD PAULA REGARDING CHANGING THE ATB FROM BIAXIN TO KEFLEX RECOMMENDED BY MY SADAAT. HE SAYS AT THIS TIME HE DOES NOT WANT TO CHANGE WE WILL SEE IF SHE CONTINUES TO C/O N/V THEN WE WILL CHANGE IF NOT KEEP THE BIAXIN BECAUSE IT IS BROAD SPECTRUM
[2016-12-27 19:00] VITALS: BP 119/70
--- NOTE | 2016-12-27 19:00 | NUR ---
RECEIVED PATIENT FROM DAY SHIFT NURSE. SHIFT REPORT GIVEN AT BEDSIDE. PATIENT LYING IN BED COMFORTABLY WITH NO SIGNS OF PAIN OR DISTRESS. PATIENT A/O PERTINENT ASSESSMENTS DONE. WILL CONTINUE TO MONITOR PATIENT THROUGHOUT SHIFT.
--- NOTE | 2016-12-27 19:34 | NUR ---
DAILY NOTE MEDICATIONS: SPOKE WITH PHARMACY REGARDING CHANGING THE TIMES FOR SOME MEDS FOR HER IN THE AM. SHE STATES SHE DOES NOT WANT ANY MEDS PRIOR TO BKFST. SHE WANTS TO TAKE HER MEDS WITH MEALS. HE SAYS HE CAN REARRANGE THE PERICOLACE TIME BUT HE CANNOT CHANGE THE TIME FOR THE SYNTHROID IT HAS TO BE PRIOR TO BKFST. THE OTHER MEDS CAN BE GIVEN WITH THE 0900 MEDS. ENDORSED TO EVENING NURSE AND PT.
[2016-12-27] MEDS: SIMVASTATIN 20 MG TABLET PO SCH (20:28)
--- NOTE | 2016-12-28 00:12 | NUR ---
12am MEDICATION BENTYL NOT GIVEN PER PATIENT REQUEST. REPORT FROM DAY SHIFT NURSE IS TO HOLD BENTYL UNTIL THE NEXT MORNING WITH BREAKFAST. MEDICATION WILL BE ADMINISTERED WITH DAY SHIFT NURSE.
[2016-12-28] MEDS: DICYCLOMINE HCL 10 MG CAPSULE PO SCH ×4 (06:00→17:44)
--- NOTE | 2016-12-28 06:11 | NUR ---
PATIENT COMPLAINED OF LEFT HIP PAIN BEFORE BEDTIME. GIVEN TYLENOL 650MG. PATIENT SLEPT COMFORTABLY THROUGH SHIFT AFTER MEDICATION ADMINISTRATION. ALL NEEDS ATTENDED. ALL MEDICATIONS ADMINISTERED ORDERED. SHIFT REPORT TO BE GIVEN TO DAY SHIFT NURSE.
[2016-12-28] MEDS: LEVOTHYROXINE SODIUM 88 MCG TABLET PO SCH (06:32)
--- NOTE | 2016-12-28 06:35 | NUR ---
PATIENT REFUSED BENTYL & REQUESTS TO TAKE MEDICATION AFTER BREAKFAST. INFORMED BY DAY SHIFT NURSE THAT PATIENT WILL NOT BE TAKING UNTIL BREAKFAST.
--- NOTE | 2016-12-28 07:25 | NUR ---
REPORT RECEIVED FROM HEPATOLOGY PHYSICIAN NURSE, PATIENT NOTED SITTING UP IN BED, NO SIGNS OF DISTRESS NOTED, COMPLAINS OF PAIN 6/10 ON LEFT HIP, TYLENOL 325 (2 TABS) GIVEN PER PATIENT REQUEST, PATIENT ASSISTED TO RESTROOM AND THEN TO CHAIR IN ROOM FOR BREAKFAST.
[2016-12-28] MEDS: ACETAMINOPHEN 325 MG TABLET PO PRN ×2 (08:48→20:27)
[2016-12-28] MEDS: SULFAMETH/TRIMETH 800/160 MG TABLET PO SCH ×2 (08:48→17:45)
[2016-12-28] MEDS: SENNOSIDES/DOCUSATE SODIUM TABLET PO SCH ×2 (08:49→17:44)
[2016-12-28] MEDS: CLOPIDOGREL 75 MG TABLET PO SCH (08:49)
[2016-12-28] MEDS: FAMOTIDINE 20 MG TABLET PO SCH (08:50)
[2016-12-28] MEDS: LOSARTAN POTASSIUM 50 MG TABLET PO SCH (08:50)
[2016-12-28] MEDS: HYDROCHLOROTHIAZIDE 12.5 MG CAPSULE PO SCH (08:50)
[2016-12-28] MEDS: METOPROLOL SUCCINATE XL 50 MG TAB.SR.24H PO SCH (08:51)
[2016-12-28] MEDS: EZETIMIBE 10 MG TABLET PO SCH (08:52)
[2016-12-28] MEDS: NEOMY/BACITRAC/POLYMI OINT 28.35 GM TUBE TOP SCH ×2 (09:00→17:45)
--- NOTE | 2016-12-28 15:42 | NUR ---
PATIENT STATES, FAMILY IS BRINGING HOME FOOD, PATIENT EATING KOSHER FOODS, AND DISLIKE HOSPITAL KOSHER FOODS,BUT STATES LIKES FISH AND VEGETABLE FOODS. SPOKE TO THE NURSE AND INFORMED THAT A PHYSICIANS ORDER IS REQUIRED FOR OUTSIDE FOOD. Addendum: 12/28/16 at [address] Amended: Links added.
[2016-12-28 19:00] VITALS: BP 115/66
--- NOTE | 2016-12-28 19:30 | NUR ---
RECEIVED PATIENT FROM DAY SHIFT NURSE. PATIENT IN BED LYING COMFORTABLY WITH NO SIGNS OF PAIN OR DISTRESS. FAMILY AT BEDSIDE. SHIFT REPORT GIVEN AT BEDSIDE. CALL LIGHT PLACED WITHIN REACH OF PATIENT. PERTINENT ASSESSMENTS COMPLETED. WILL CONTINUE TO MONITOR PATIENT THROUGH OUT SHIFT.
[2016-12-28] MEDS: SIMVASTATIN 20 MG TABLET PO SCH (20:26)
[2016-12-29] MEDS: DICYCLOMINE HCL 10 MG CAPSULE PO SCH ×5 (06:00→18:00)
[2016-12-29] MEDS: LEVOTHYROXINE SODIUM 88 MCG TABLET PO SCH (06:15)
--- NOTE | 2016-12-29 06:48 | NUR ---
PATIENT SLEPT COMFORTABLY THROUGH OUT SHIFT. NO SIGNS OF PAIN OR DISTRESS. ALL NEEDS ATTENDED TO. MEDICATIONS ADMINISTERED ORDERED. WILL REPORT TO DAY SHIFT NURSE AT BEDSIDE.
[2016-12-29] MEDS: METOPROLOL SUCCINATE XL 50 MG TAB.SR.24H PO SCH (08:58)
[2016-12-29] MEDS: CLOPIDOGREL 75 MG TABLET PO SCH (08:58)
[2016-12-29] MEDS: FAMOTIDINE 20 MG TABLET PO SCH (08:58)
[2016-12-29] MEDS: LOSARTAN POTASSIUM 50 MG TABLET PO SCH (08:58)
[2016-12-29] MEDS: HYDROCHLOROTHIAZIDE 12.5 MG CAPSULE PO SCH (08:58)
[2016-12-29] MEDS: SENNOSIDES/DOCUSATE SODIUM TABLET PO SCH ×3 (08:59→18:00)
[2016-12-29] MEDS: SULFAMETH/TRIMETH 800/160 MG TABLET PO SCH ×2 (08:59→17:52)
[2016-12-29] MEDS: EZETIMIBE 10 MG TABLET PO SCH ×2 (09:00→09:55)
[2016-12-29] MEDS: NEOMY/BACITRAC/POLYMI OINT 28.35 GM TUBE TOP SCH ×2 (09:00→17:53)
[2016-12-29 09:42] VITALS: BP 134/73
--- NOTE | 2016-12-29 09:47 | NUR ---
pt seen on rounding. pt vitals assessed. bp slightly elevated. pt ate breakfast. bt assisted to the bathroom. pt voided and had bm. pt assisted to the chair. pt ate breakfast. pt given meds after breakfast. messaged previous rn for endorsement about wound care.will not apply until clarified. will continue to monitor for complications.
--- NOTE | 2016-12-29 09:58 | NUR ---
pt refused zetia 10mg daily for hypercholesteremia. explained risks and benefits. will continue to monitor.
--- NOTE | 2016-12-29 11:47 | NUR ---
assessed wound site. contacted dr kohli for wound care orders. md wants sterri strips applied once and have triple anti biotic cream applied on reddened areas only. states not to put hytone cream. reapplied sterri strips and applied antibiotic cream on red areas. photo taken and placed in chart. pt given tylenol for pain. pt participated in therapy.
[2016-12-29] MEDS: ACETAMINOPHEN 325 MG TABLET PO PRN ×2 (11:53→21:01)
--- NOTE | 2016-12-29 14:34 | NUR ---
Interdisciplinary Team Conference Summary
--- NOTE | 2016-12-29 17:57 | NUR ---
pt refused karla colace and sennosides due at 1700, explained risks and benefits. pt states that it gives her n/v. will continue to monitor.
[2016-12-29] MEDS: HYDROCORTISONE 1% CREAM 30 GM TUBE TP PRN ×2 (18:01→21:52)
--- NOTE | 2016-12-29 18:01 | NUR ---
md gonzalez states that he wants to apply hytone cream per itching on surrounding areas of the wound but not on the wound. reapplied sterri strip and applied hytone cream around the wound and applied neosporin on the wound. will continue to assess for progress.
--- NOTE | 2016-12-29 19:00 | NUR ---
pt stable throughout the day. provided wound care. meds administered. pt had orders for wound care orders. endorsed to proof technician helper. pt refused pericolace and bentyl because states that it give her n/v. assisted as needed. dc date tomorrow. prescriptions in chart. will endorse to proof technician helper nurse.
--- NOTE | 2016-12-29 19:00 | NUR ---
Received pt resting comfortably in bed, watching TV. Family at bedside. No signs of acute distress noted. No complaints of pain or discomfort at this time. Safety measures observed. Call light within reach. Will continue to monitor.
[2016-12-29 19:30] VITALS: BP 122/61
[2016-12-29] MEDS: SIMVASTATIN 20 MG TABLET PO SCH (20:14)
--- NOTE | 2016-12-29 21:52 | NUR ---
Pt complained of pain on the wound area. Site has redness and warm to touch. Administered pain medication. Performed wound care, applied hyatone cream on the surrounding area and covered with Steri- strips per MD's order. Kept area clean and dry. Will continue to monitor.
--- NOTE | 2016-12-30 00:48 | NUR ---
Patient refused to take Bentyl. Teachings provided. Risks and benefits explained. Still refused medication. Will continue to monitor.
--- NOTE | 2016-12-30 05:39 | NUR ---
Patient slept intermittently at night. Assisted to the bathroom as needed. No complaints of pain on wound site at this time. Kept site clean and dry. Reinforced wound care. Safety measures maintained. Call light within reach. Vital signs stable. All needs attended t/o the night. Continue to monitor. Will endorse to day shift RN.
[2016-12-30] MEDS: LEVOTHYROXINE SODIUM 88 MCG TABLET PO SCH (06:17)
--- NOTE | 2016-12-30 06:50 | NUR ---
Patient didn't want to take Bentyl at this time. She requested to take it after breakfast. Will endorse to day shift RN.
--- NOTE | 2016-12-30 07:21 | NUR ---
SBAR RECEIVED FROM PHOTO FINISHER NURSE, PATIENT NOTED SLEEPING IN BED, CALL LIGHT IN REACH, BED LOCKED AND IN LOWEST POSITION, NO SIGNS OF DISTRESS, NO COMPLAINTS OF PAIN
[2016-12-30] MEDS: SENNOSIDES/DOCUSATE SODIUM TABLET PO SCH (08:56)
[2016-12-30] MEDS: SULFAMETH/TRIMETH 800/160 MG TABLET PO SCH (08:56)
[2016-12-30] MEDS: HYDROCHLOROTHIAZIDE 12.5 MG CAPSULE PO SCH (08:56)
[2016-12-30] MEDS: FAMOTIDINE 20 MG TABLET PO SCH (08:56)
[2016-12-30] MEDS: EZETIMIBE 10 MG TABLET PO SCH (08:56)
[2016-12-30] MEDS: CLOPIDOGREL 75 MG TABLET PO SCH (08:56)
[2016-12-30] MEDS: LOSARTAN POTASSIUM 50 MG TABLET PO SCH (08:56)
[2016-12-30 08:57] VITALS: BP 143/76
[2016-12-30] MEDS: METOPROLOL SUCCINATE XL 50 MG TAB.SR.24H PO SCH (08:57)
[2016-12-30] MEDS: ACETAMINOPHEN 325 MG TABLET PO PRN (08:57)
[2016-12-30] MEDS: DICYCLOMINE HCL 10 MG CAPSULE PO SCH ×3 (08:57→14:05)
[2016-12-30] MEDS: NEOMY/BACITRAC/POLYMI OINT 28.35 GM TUBE TOP SCH (09:17)
[2016-12-30] MEDS: HYDROCORTISONE 1% CREAM 30 GM TUBE TP PRN (09:54)
--- NOTE | 2016-12-30 15:01 | NUR ---
133/75, 82 PULSE, 97.9 ORAL TEMP, 18 RESP, PATIENT DISCHARGED FROM FACILITY AT 1459 VIA WHEELCHAIR TO PRIVATE CAR WITH FAMILY(ELIAS RAMOSIAN-DAUGHTER-). PATIENT STABLE AND NO DISTRESS NOTED. MEDICATION ADMINISTRATION, EXIT CARE AND EDUCATION PROVIDED BY ............ IN (LANGUAGE: FARSI). PATIENT STATES SHE UNDERSTOOD ALL EDUCATION GIVEN. ALL BELONGINGS ACCOUNTED FOR BY STAFF AND PATIENT, [facility] FAXED MED LIST WITH RETURNED ACCEPTANCE FAX, FAMILY STATES THEY WILL FOLLOW UP WITH PRIMARY CARE PHYSICIAN. HOME HEALTH AGENCY ARRANGED FOR ACCESS HOME HEALTH ([facility]: [phone])
== END 2016-12-30 14:59 | disposition home health service (06) | DRG 560 ==
PROVIDERS: ADMIT Physical Medicine & Rehabilitation Pain Medicine; ATTEND Physical Medicine & Rehabilitation Pain Medicine
DX: S72.302D Unspecified fracture of shaft of left femur, subsequent encounter for closed fracture with routine healing (principal); D68.59 Other primary thrombophilia; L03.116 Cellulitis of left lower limb; Z96.641 Presence of right artificial hip joint; I10 Essential (primary) hypertension; W19.XXXD Unspecified fall, subsequent encounter; E03.9 Hypothyroidism, unspecified; I25.10 Atherosclerotic heart disease of native coronary artery without angina pectoris; K58.9 Irritable bowel syndrome, unspecified; R26.9 Unspecified abnormalities of gait and mobility; R53.1 Weakness; R79.89 Other specified abnormal findings of blood chemistry; D50.9 Iron deficiency anemia, unspecified; E66.9 Obesity, unspecified; Z68.27 Body mass index [BMI] 27.0-27.9, adult; E78.5 Hyperlipidemia, unspecified; M19.90 Unspecified osteoarthritis, unspecified site; R01.1 Cardiac murmur, unspecified; Z88.6 Allergy status to analgesic agent; I08.0 Rheumatic disorders of both mitral and aortic valves
CPT/HCPCS: 36415; 70030-TC; 73551; 82306; 83735; 84100; 84443; 85025; 92523; 92526; 92610; 97110; 97112; 97116; 97165; 97530; 97535; A4663; Q0162; Q0163

== ENCOUNTER 2018-02-08 16:17 | Emergency (ER) | payer MEDICARE, MEDICAID ==
[~2018-02-08] VITALS: Ht 152.4 cm; Wt 56.2 kg
[~2018-02-08 16:17] MED LIST: ACET-2154 PO; CLON0.1T PO; CLOP75TA33 PO; DOCU100C36 PO; EZET10TA13 PO; FENO145T37 PO; LEVO75TA7 PO; LOSA1TAB3 PO; MAGN400O6 PO; METO-356 PO; OXYC-128 PO; SENN-18 PO; SIMV20TA6 PO; TRAM50TA2 PO
[2018-02-08] MEDS ORDERED: IV NORMAL SALINE 1000 ML BAG IV ONE (16:45)
[2018-02-08] MEDS ORDERED: ONDANSETRON 4 MG/2 ML VIAL IV ONE (16:45)
[2018-02-08] MEDS ORDERED: HYDROMORPHONE 1 MG/1 ML DISP.SYRIN IV ONE (16:45)
[2018-02-08 16:54] LABS: BASOPHILS % (AUTO) 0.6 % (0.0-2.0); EOSINOPHILS # (AUTO) 0.1 K/uL (0.0-0.7); EOSINOPHILS % (AUTO) 1.3 % (0.0-7.0); HEMATOCRIT 37.5 % (31.2-41.9); HEMOGLOBIN 13.1 g/dL (10.9-14.3); LYMPHOCYTES % (AUTO) 49.8 % (20.5-51.5); MEAN CORPUSCULAR HEMOGLOBIN 31.7 uug (24.7-32.8); MEAN CORPUSCULAR HGB CONC 35 g/dL (32.3-35.6); MEAN CORPUSCULAR VOLUME 91.1 fL (75.5-95.3); MONOCYTES # (AUTO) 0.5 K/uL (2.0-10.0); MONOCYTES % (AUTO) 7.6 % (0.0-11.0); NEUTROPHILS # (AUTO) 2.5 K/uL (1.8-8.9); NEUTROPHILS % (AUTO) 40.7 % (38.5-71.5); PLATELET COUNT (AUTO) 157 K/uL (179-408); RED BLOOD CELL COUNT(AUTO) 4.12 MIL/uL (3.63-4.92)
[2018-02-08 16:58] LABS: CARBON DIOXIDE 27 mmol/L (21-32); CHLORIDE 95 mmol/L (98-107); CREATININE 0.6 mg/dL (0.6-1.3); GLUCOSE 92 mg/dL (74-106); POTASSIUM 3.4 mmol/L (3.5-5.1); UREA NITROGEN, BLOOD 18 mg/dL (7-18)
[2018-02-08 17:04] LABS: ALANINE AMINOTRANSFERASE 23 U/L (14-59); ALKALINE PHOSPHATASE 58 U/L (50-136); ASPARTATE AMINOTRANSFERASE 12 U/L (15-37); BILIRUBIN,DIRECT 0.1 mg/dL (0.0-0.2); BILIRUBIN,TOTAL 0.6 mg/dL (0.2-1.0); LIPASE 176 U/L (73-393); TOTAL PROTEIN, SERUM 7.1 g/dL (6.4-8.2)
--- NOTE | 2018-02-08 17:10 | NUR ---
DR. SANCHEZ AT BEDSIDE.
[2018-02-08] MEDS ORDERED: LANS30CA54 PO (17:31)
[2018-02-08] MEDS ORDERED: METO25TA3 PO (17:31)
[2018-02-08] MEDS ORDERED: FENO145T PO (17:31)
[2018-02-08] MEDS ORDERED: LINA290C PO (17:32)
[2018-02-08 17:43] LABS: *BILIRUBIN,URIN NEGATIVE (NEGATIVE); *BLOOD, URINE Trace-intact (NEGATIVE); *CLARITY,URINE CLEAR (CLEAR); *COLOR,URINE LIGHT YELLOW (YELLOW); *KETONES,URINE NEGATIVE (NEGATIVE); *PROTEIN,URINE NEGATIVE (NEGATIVE); *UROBILINOGEN,URINE 0.2 E.U./dl (NORMAL); LEUKOCYTE ESTERASE ,URINE TRACE (NEGATIVE); NITRITE, URINE NEGATIVE (NEGATIVE); UGLUCOSE NEGATIVE (NEGATIVE)
[2018-02-08 17:49] LABS: SQUAMOUS EPITHELIAL CELL,UR FEW /HPF (NONE SEEN)
[2018-02-08 18:01] VITALS: BP 161/85
--- NOTE | 2018-02-08 18:26 | NUR ---
Patient discharged to home in stable conditon. Written and verbal after care instructions given. Patient verbalizes understanding of instructions.PT WITH FAMILY MEMBERS. PT SAYS FEELS BETTER, AND WANTS TO GO HOME. Addendum: 02/08/18 at 1827 by MARISSA COPY OF ALL THE STUDIES PROVIDED FOR PT. PT WILL FOLLOW UP WITH DR. SANCHEZ, OWN PMD.
== END 2018-02-08 18:29 | disposition home or self-care (01) ==
LOC: ER 16:17
DX: R10.13 Epigastric pain (principal); I10 Essential (primary) hypertension; E78.5 Hyperlipidemia, unspecified; M19.90 Unspecified osteoarthritis, unspecified site; Z88.6 Allergy status to analgesic agent; Z79.01 Long term (current) use of anticoagulants
CPT/HCPCS: 36415; 70030-TC; 71045; 83605; 83690; 85025; 85730; 87040; 87086; 93005; A4663; J7030

== ENCOUNTER 2018-07-10 10:32 | Emergency (ER) | payer MEDICARE, MEDICAID ==
[~2018-07-10] VITALS: Ht 152.4 cm; Wt 54.4 kg
[~2018-07-10 10:32] MED LIST changes: -ACET-2154 PO; -CLON0.1T PO; -DOCU100C36 PO; +FENO145T PO; -FENO145T37 PO; +LANS30CA54 PO; +LINA290C PO; -MAGN400O6 PO; -METO-356 PO; +METO25TA3 PO; -OXYC-128 PO; -SENN-18 PO; -TRAM50TA2 PO
[2018-07-10] MEDS ORDERED: SULFAMETH/TRIMETH 800/160 MG TABLET ONE (11:13)
--- NOTE | 2018-07-10 11:14 | NUR ---
Patient discharged to home in stable conditon. Written and verbal after care instructions given. Patient verbalizes understanding of instructions.pt with son
[2018-07-10] MEDS ORDERED: SULFAMETH/TRIMETH 800/160 MG TABLET PO ONE (11:15)
== END 2018-07-10 11:17 | disposition home or self-care (01) ==
LOC: ER 10:32
DX: L03.116 Cellulitis of left lower limb (principal); I10 Essential (primary) hypertension; E78.5 Hyperlipidemia, unspecified; Z88.6 Allergy status to analgesic agent; Z79.899 Other long term (current) drug therapy; Z79.01 Long term (current) use of anticoagulants
CPT/HCPCS: A4663

== ENCOUNTER 2020-11-20 12:46 | Emergency (ER) | payer MEDICARE, OTHER ==
[~2020-11-20] VITALS: Ht 147.3 cm; Wt 52.6 kg
[~2020-11-20 12:46] MED LIST changes: -EZET10TA13 PO; +EZET10TA15 PO; +SIMV-46 PO; -SIMV20TA6 PO
--- NOTE | 2020-11-20 13:14 | NUR ---
Patient brought in by son for hemaglobin level of 7.1, patient advised to come to ER for transfusion
--- NOTE | 2020-11-20 13:16 | NUR ---
at bedside for assistance
[2020-11-20 13:30] LABS: CARBON DIOXIDE 20 mmol/L (21-32); CHLORIDE 102 mmol/L (98-107); CREATININE 1.4 mg/dL (0.6-1.3); GLUCOSE 105 mg/dL (74-106); MEAN CORPUSCULAR HEMOGLOBIN 32.2 uug (24.7-32.8); MEAN CORPUSCULAR VOLUME 95.2 fL (75.5-95.3); PLATELET COUNT (AUTO) 223 K/uL (179-408); POTASSIUM 4.3 mmol/L (3.5-5.1); UREA NITROGEN, BLOOD 27 mg/dL (7-18)
[2020-11-20 13:36] LABS: ALANINE AMINOTRANSFERASE 20 U/L (14-59); ALKALINE PHOSPHATASE 51 U/L (50-136); ASPARTATE AMINOTRANSFERASE 21 U/L (15-37); BILIRUBIN,TOTAL 0.4 mg/dL (0.2-1.0); TOTAL PROTEIN, SERUM 6.2 g/dL (6.4-8.2)
--- NOTE | 2020-11-20 13:38 | NUR ---
Consent for blood signed by son
[2020-11-20 13:43] LABS: HEMATOCRIT 20.9 % (31.2-41.9)
--- NOTE | 2020-11-20 16:40 | NUR ---
1 unit of PRBC given at this time, no signs of adverse reaction noted
--- NOTE | 2020-11-20 16:52 | NUR ---
Patient receiving second unit of red blood cells
[2020-11-20 17:38] LABS: HEMATOCRIT 30.6 % (31.2-41.9)
--- NOTE | 2020-11-20 18:21 | NUR ---
Patient discharged to home in stable condition. Son noted picking up patient, patient given labs of current hgb. Written and verbal after care instructions given. No signs of distress noted. Patient verbalizes understanding of instructions. Stressed follow up or return to ER for worsening s/s.
[2020-11-20 18:28] VITALS: BP 123/78
== END 2020-11-20 18:22 | disposition home or self-care (01) ==
LOC: ER 12:46
DX: D64.9 Anemia, unspecified (principal); I10 Essential (primary) hypertension; Z85.3 Personal history of malignant neoplasm of breast; E78.5 Hyperlipidemia, unspecified; Z79.899 Other long term (current) drug therapy; E03.9 Hypothyroidism, unspecified; Z79.890 Hormone replacement therapy; Z79.02 Long term (current) use of antithrombotics/antiplatelets; R01.1 Cardiac murmur, unspecified
CPT/HCPCS: 36415; 80053; 85018; 85025; 85610; 86850; 86900; 86901; 86920 ×2; 99285; P9016 ×2; A4663; J7030; P9021

== ENCOUNTER 2021-02-08 11:12 | Inpatient (IN) | payer MEDICARE, OTHER ==
[~2021-02-08] VITALS: Ht 149.9 cm; Wt 49.9 kg
[2021-02-08 12:53] LABS: HEMATOCRIT 27.9 % (31.2-41.9); MEAN CORPUSCULAR HEMOGLOBIN 33.6 uug (24.7-32.8); MEAN CORPUSCULAR VOLUME 99.2 fL (75.5-95.3); PLATELET COUNT (AUTO) 290 K/uL (179-408)
[2021-02-08 12:59] LABS: CREATININE 1.3 mg/dL (0.6-1.3); POTASSIUM 4.1 mmol/L (3.5-5.1)
[2021-02-08 13:04] LABS: BILIRUBIN,DIRECT 0.2 mg/dL (0.0-0.2); BILIRUBIN,TOTAL 0.5 mg/dL (0.2-1.0); TOTAL PROTEIN, SERUM 5.7 g/dL (6.4-8.2)
[2021-02-08] MEDS ORDERED: IV NORMAL SALINE 1000 ML BAG IV ONE (13:45)
[2021-02-08] MEDS ORDERED: ONDANSETRON 4 MG/2 ML VIAL IV ONE (14:30)
[2021-02-08] MEDS ORDERED: MORPHINE SULFATE 4 MG/1 ML DISP.SYRIN IV ONE (14:30)
[2021-02-08] MEDS ORDERED: ONDANSETRON 4 MG/2 ML VIAL ONE (14:55)
[2021-02-08] MEDS ORDERED: MORPHINE SULFATE 2 MG/1 ML DISP.SYRIN ONE (14:55)
--- NOTE | 2021-02-08 18:06 | NUR ---
Upstairs extension service specialist in charge states room needs EVS to do covid cleaning before room is available to transfer pt. Will call when ready.
[2021-02-08] MEDS ORDERED: IV NS 1000 ML 1,000 ML IV PRN (19:45)
[2021-02-08] MEDS ORDERED: ONDANSETRON 4 MG/2 ML VIAL IV PRN (19:45)
[2021-02-08] MEDS ORDERED: MAGNESIUM HYDROXIDE 30 ML LIQUID UDC PO PRN (19:45)
--- NOTE | 2021-02-08 20:37 | NUR ---
Report given to Jacqui VIERA Tele.
--- NOTE | 2021-02-08 21:22 | NUR ---
TRANSFERED TP 3RD FLOOR TELE VIA GURNY BY NURSING TIE TAMPER.
[2021-02-08] MEDS ORDERED: DEXTROSE 50% 50 ML DISP.SYRIN IV PRN (21:45)
[2021-02-08 22:03] VITALS: BP 123/90
[2021-02-08] MEDS: BLOOD SUGAR DIAGNOSTIC 1 EACH STRIP VI SCH ×3 (23:05→23:30)
[2021-02-09 04:33] VITALS: BP 138/63
--- NOTE | 2021-02-09 05:31 | NUR ---
Pt slept intermittently throughout the night. Blood sugar reassessed and was 58 around 0200H, given orange juice. No distress noted. IV site intact. No other issues or concerns at this time, will endorse to day shift.
[2021-02-09] MEDS: LEVOTHYROXINE SODIUM 75 MCG TABLET PO SCH (06:35)
[2021-02-09] MEDS: PANTOPRAZOLE SODIUM 40 MG TABLET.DR PO SCH (06:35)
[2021-02-09] MEDS: BLOOD SUGAR DIAGNOSTIC 1 EACH STRIP VI SCH ×4 (06:48→20:36)
[2021-02-09 07:08] LABS: HEMATOCRIT 25.4 % (31.2-41.9); MEAN CORPUSCULAR HEMOGLOBIN 33.8 uug (24.7-32.8); MEAN CORPUSCULAR VOLUME 100.6 fL (75.5-95.3); PLATELET COUNT (AUTO) 268 K/uL (179-408)
[2021-02-09] MEDS ORDERED: IV D5W 1000ML 1,000 ML IV PRN (07:15)
[2021-02-09] MEDS: IV D5/ 0.9% NACL 1,000 ML IV PRN (07:59)
[2021-02-09 08:18] LABS: CREATININE 1.2 mg/dL (0.6-1.3); MAGNESIUM 1.7 mg/dL (1.8-2.4); PHOSPHOROUS 3.8 mg/dL (2.5-4.9); POTASSIUM 4.1 mmol/L (3.5-5.1)
[2021-02-09] MEDS ORDERED: Linaclotide (Linzess) 290 MCG) PO SCH (09:00)
[2021-02-09] MEDS ORDERED: CLOPIDOGREL 75 MG TABLET PO SCH (09:00)
[2021-02-09] MEDS: METOPROLOL SUCCINATE XL 25 MG TAB.SR.24H PO SCH (09:00)
[2021-02-09] MEDS ORDERED: EZETIMIBE 10 MG TABLET PO SCH (09:00)
[2021-02-09] MEDS ORDERED: SIMVASTATIN 20 MG TABLET PO SCH (09:00)
--- NOTE | 2021-02-09 09:20 | NUR ---
DTR at bedside stating that patient was supposed to get darbepoetin injection in [facility] today, informed Rosa PUNCHBOARD FILLING MACHINE OPERATOR, per Rosa, per Rosa we dont offer it at this hospital, explained to DTR. DTR asking if we can arrange transportation to have patient go to [facility] for injection, spoke with case management. per case management they will call family.
[2021-02-09] MEDS: FENOFIBRATE NANOCRYSTALLIZED 145 MG TABLET PO SCH (09:58)
[2021-02-09] MEDS: MAGNESIUM SULFATE/D5W 100 ML IV SCH ×2 (10:04→10:31)
[2021-02-09 11:24] VITALS: BP 116/66
[2021-02-09] MEDS: LINZESS 290 MCG PO SCH (11:55)
[2021-02-09] MEDS: [UNRECOGNIZED DRUG - OTHER] PO SCH (11:55)
[2021-02-09 15:39] VITALS: BP 136/65
[2021-02-09] MEDS: INSULIN REGULAR, HUMAN 300 UNIT/3 ML VIAL SQ PRN (16:40)
[2021-02-09 20:00] VITALS: BP 152/71
[2021-02-09] MEDS: EZETIMIBE 10 MG TABLET PO SCH (20:36)
[2021-02-09] MEDS: SIMVASTATIN 20 MG TABLET PO SCH (20:36)
--- NOTE | 2021-02-09 22:00 | NUR ---
Assumed care of patient from AYLIN Renner. Received patient lying in bed. AAOx1-2 only. Mainly confused. In no apparent distress. No signs or symptoms of pain or SOB. Current IV site infiltrated. New IV started on left FA #22G. Continue to infuse IVF. Needs assessed and attended to. Safety measure initiated and call nolan within reached.
[2021-02-10] MEDS: IV D5/ 0.9% NACL 1,000 ML IV PRN ×2 (00:23→11:17)
[2021-02-10 04:00] VITALS: BP 151/70
[2021-02-10] MEDS: PANTOPRAZOLE SODIUM 40 MG TABLET.DR PO SCH (06:02)
[2021-02-10] MEDS: LEVOTHYROXINE SODIUM 75 MCG TABLET PO SCH (06:02)
--- NOTE | 2021-02-10 06:24 | NUR ---
Patient slept well last night. In no acute distress. AAOx1-2, but mainly confused. No signs or symptoms of pain or SOB. Left FA IV site intact and patent. IVF infusing. Needs anticipated to and met. Safety measure maintained and call nolan within reached.
[2021-02-10] MEDS: BLOOD SUGAR DIAGNOSTIC 1 EACH STRIP VI SCH ×4 (06:32→21:03)
[2021-02-10 07:33] LABS: HEMATOCRIT 25.1 % (31.2-41.9); MEAN CORPUSCULAR HEMOGLOBIN 33.5 uug (24.7-32.8); MEAN CORPUSCULAR VOLUME 99.4 fL (75.5-95.3); PLATELET COUNT (AUTO) 313 K/uL (179-408)
[2021-02-10 07:44] LABS: MAGNESIUM 2.1 mg/dL (1.8-2.4); PHOSPHOROUS 2.6 mg/dL (2.5-4.9); POTASSIUM 3.7 mmol/L (3.5-5.1)
--- NOTE | 2021-02-10 08:00 | NUR ---
awake but oriented to self only, farsi speaking, no distress noted, repositioned up in bed, legs on the rails, bed alarm on, needs attended
[2021-02-10] MEDS: FENOFIBRATE NANOCRYSTALLIZED 145 MG TABLET PO SCH (08:39)
[2021-02-10] MEDS: METOPROLOL SUCCINATE XL 25 MG TAB.SR.24H PO SCH (08:41)
[2021-02-10] MEDS: [UNRECOGNIZED DRUG - OTHER] PO SCH (08:43)
[2021-02-10] MEDS: LINZESS 290 MCG PO SCH (08:43)
--- NOTE | 2021-02-10 11:00 | NUR ---
daughter here at bedside, updated on pt's condition, calmer at this time, urine specimen collected and sent to lab
[2021-02-10 11:30] VITALS: BP_SYST 127; BP_SYST 134; BP_SYST 99; BP_DIAS 64; BP_DIAS 68; BP_DIAS 75
[2021-02-10 11:35] LABS: *BILIRUBIN,URIN NEGATIVE (NEGATIVE); *BLOOD, URINE 1+ (NEGATIVE); *COLOR,URINE YELLOW (YELLOW); *KETONES,URINE NEGATIVE (NEGATIVE); *UROBILINOGEN,URINE 0.2 E.U./dl (NORMAL); LEUKOCYTE ESTERASE ,URINE NEGATIVE (NEGATIVE); NITRITE, URINE NEGATIVE (NEGATIVE); UGLUCOSE NEGATIVE (NEGATIVE)
[2021-02-10 12:00] VITALS: BP 134/68
[2021-02-10 15:10] LABS: *CLARITY,URINE SLIGHTLY HAZY (CLEAR); BACTERIA,URINE FEW /HPF (NONE SEEN); SQUAMOUS EPITHELIAL CELL,UR FEW /HPF (NONE SEEN)
[2021-02-10] MEDS: CLONIDINE HCL 0.1 MG TABLET PO PRN (16:04)
[2021-02-10 16:16] VITALS: BP 177/95
--- NOTE | 2021-02-10 18:14 | NUR ---
resting in bed, no distress noted, poor appetite, family been at bedside, all needs attended and met, call light within reach, bed alarm on
--- NOTE | 2021-02-10 19:30 | NUR ---
RECEIVED PT AWAKE, ALERT AND ORIENTEDX3. DAUGHTER IN BEDSIDE. PT IN NO ACUTE DISTRESS. IV INTACT. SAFETY AND COMFORT PROVIDED. WILL CONTINUE TO MONITOR.
[2021-02-10] MEDS: ACETAMINOPHEN 325 MG TABLET PO PRN (20:01)
[2021-02-10] MEDS: SIMVASTATIN 20 MG TABLET PO SCH (20:01)
[2021-02-10] MEDS: EZETIMIBE 10 MG TABLET PO SCH (20:01)
[2021-02-11] MEDS: IV D5/ 0.9% NACL 1,000 ML IV PRN ×2 (04:30→21:09)
[2021-02-11 04:35] VITALS: BP 147/116
--- NOTE | 2021-02-11 05:25 | NUR ---
PT SLEPT INTERMITTENTLY. PT IN NO ACUTE DISTRESS. PT STABLE. PRESCRIBED MEDICATION GIVEN AND PT TOLERATED IT WELL. SAFETY AND COMFORT PROVIDED. ALL NEEDS ARE MET. WILL ENDORSE TO INCOMING NURSE FOR CONTINUITY OF CARE.
[2021-02-11] MEDS: LEVOTHYROXINE SODIUM 75 MCG TABLET PO SCH (06:04)
[2021-02-11] MEDS: PANTOPRAZOLE SODIUM 40 MG TABLET.DR PO SCH (06:04)
[2021-02-11] MEDS: BLOOD SUGAR DIAGNOSTIC 1 EACH STRIP VI SCH ×4 (06:36→20:47)
[2021-02-11 06:59] LABS: HEMATOCRIT 23.2 % (31.2-41.9); MEAN CORPUSCULAR HEMOGLOBIN 33.9 uug (24.7-32.8); MEAN CORPUSCULAR VOLUME 100.7 fL (75.5-95.3); PLATELET COUNT (AUTO) 239 K/uL (179-408)
[2021-02-11 07:04] LABS: POTASSIUM 3.8 mmol/L (3.5-5.1)
[2021-02-11] MEDS: METOPROLOL SUCCINATE XL 25 MG TAB.SR.24H PO SCH (08:44)
[2021-02-11] MEDS: [UNRECOGNIZED DRUG - OTHER] PO SCH (08:45)
[2021-02-11] MEDS: FENOFIBRATE NANOCRYSTALLIZED 145 MG TABLET PO SCH (08:45)
[2021-02-11] MEDS: LINZESS 290 MCG PO SCH (08:45)
--- NOTE | 2021-02-11 09:00 | NUR ---
awake but looks weak, repositioned and made comfortable, still very poor appetite, informed speech therapist, safety measures maintained
--- NOTE | 2021-02-11 10:00 | NUR ---
family here, and PT also at bedside- see notes
[2021-02-11 11:50] VITALS: BP 115/64
[2021-02-11] MEDS: SOD FERRIC GLUC COMPLX/SUCROSE 125 MG in IV NORMAL SALINE 100 ML IV SCH (14:16)
[2021-02-11 16:00] VITALS: BP 141/72
[2021-02-11] MEDS ORDERED: EPOETIN ALFA 10,000 UNITS/ML VIAL SQ ONE (16:15)
[2021-02-11] MEDS ORDERED: EPOETIN ALFA-EPBX 10,000 UNIT/ML VIAL SQ ONE (17:00)
[2021-02-11] MEDS: GLUCERNA SHAKE 237 ML CAN PO SCH (18:12)
[2021-02-11] MEDS: ACETAMINOPHEN 325 MG TABLET PO PRN (18:21)
--- NOTE | 2021-02-11 19:04 | NUR ---
family members have been visiting most of the shift, no distress noted, Gregorio Loja CORE DRILL OPERATOR spoke to son Damion today, all needs attended and met, still very poor appetite during shift inspite of a lot of encouragement, call light and bed alarm on
--- NOTE | 2021-02-11 19:30 | NUR ---
RECEIVED AWAKE, ALERT AND ORIENTED X2. FAMILY AT BEDSIDE. PT IN NO ACUTE DISTRESS. IV INTACT. PT REQUESTING FOR SLEEPING MEDICATION FOR THE PT. FAMILYMEMBER STATING PT IS ANXIOUS. FAMILY MEMBER WANTS PT TO BE SIT UP AT THE EDGE OF THE BED. TOLD FAMILY MEMBER I WILL BE BACK TO HELP THE PT. SAFETY AND COMFORT PROVIDED. WILL CONTINUE TO MONITOR.
--- NOTE | 2021-02-11 19:31 | NUR ---
NOTED TO HAVE REDNESS ON RIGHT POSTERIOR ARM. PT IN NO ACUTE DISTRESS. WILL CONTINUE TO MONITOR.
--- NOTE | 2021-02-11 20:00 | NUR ---
WENT BACK TO PT ROOM AND HELP PT SIT UP ON THE EDGE OF THE BED WITH THE HELP OF SON.
[2021-02-11 20:35] VITALS: BP_SYST 159; BP_SYST 95; BP_DIAS 46; BP_DIAS 84
[2021-02-11] MEDS: EZETIMIBE 10 MG TABLET PO SCH (20:46)
[2021-02-11] MEDS: CLONIDINE HCL 0.1 MG TABLET PO PRN (20:46)
[2021-02-11] MEDS: SIMVASTATIN 20 MG TABLET PO SCH (20:47)
[2021-02-11] MEDS: INSULIN REGULAR, HUMAN 300 UNIT/3 ML VIAL SQ PRN (20:50)
--- NOTE | 2021-02-11 21:00 | NUR ---
PT WAS ASSISTED BACK TO THE BED BY THE PROCESS IMPROVEMENT MANAGER AND SON. PT LYING IN BED COMFORTABLY. NOTIFY YANY RIOS GAS FLOW REGULATOR REGARDING FAMILY MEMBER WANTS SLEEPING MEDICATION. ORDERED RESTORIL 15MG HSPRN .
[2021-02-12] VITALS (11 sets, daily range): BP systolic 101–185; BP diastolic 63–98
[2021-02-12] MEDS: TEMAZEPAM 15 MG CAPSULE PO PRN (00:09)
--- NOTE | 2021-02-12 05:09 | NUR ---
PT IN NO ACUTE DISTRESS. PT CONFUSED AND NEEDS REORIENTATION. PT TRYING TO TAKE OFF HER GOWN. PT IV INTACT. PT IN NO ACUTE DISTRESS. PT STABLE. SAFETY AND COMFORT PROVIDED. ALL NEEDS ARE MET.WILL ENDORSE TO INCOMING NURSE FOR CONTINUITY OF CARE.
[2021-02-12] MEDS: PANTOPRAZOLE SODIUM 40 MG TABLET.DR PO SCH (06:17)
[2021-02-12] MEDS: LEVOTHYROXINE SODIUM 75 MCG TABLET PO SCH (06:17)
[2021-02-12] MEDS: BLOOD SUGAR DIAGNOSTIC 1 EACH STRIP VI SCH ×4 (06:36→20:45)
[2021-02-12 08:25] LABS: MEAN CORPUSCULAR VOLUME 100.5 fL (75.5-95.3); PLATELET COUNT (AUTO) 244 K/uL (179-408)
[2021-02-12] MEDS: GLUCERNA SHAKE 237 ML CAN PO SCH ×3 (08:28→18:14)
[2021-02-12] MEDS: FENOFIBRATE NANOCRYSTALLIZED 145 MG TABLET PO SCH (08:28)
[2021-02-12] MEDS: METOPROLOL SUCCINATE XL 25 MG TAB.SR.24H PO SCH (08:29)
[2021-02-12] MEDS: LINZESS 290 MCG PO SCH (08:31)
[2021-02-12] MEDS: [UNRECOGNIZED DRUG - OTHER] PO SCH (08:31)
[2021-02-12 08:32] LABS: CREATININE 0.9 mg/dL (0.6-1.3); POTASSIUM 3.8 mmol/L (3.5-5.1)
[2021-02-12] MEDS: IV D5/ 0.9% NACL 1,000 ML IV PRN (11:00)
[2021-02-12] MEDS: SOD FERRIC GLUC COMPLX/SUCROSE 125 MG in IV NORMAL SALINE 100 ML IV SCH (14:06)
--- NOTE | 2021-02-12 17:45 | NUR ---
Blood transfusion started. No reactions noted. Will continue to monitor.
[2021-02-12] MEDS: CLONIDINE HCL 0.1 MG TABLET PO PRN (18:03)
--- NOTE | 2021-02-12 19:30 | NUR ---
Received patient lying in bed. AAOx1-2. In no acute distress. No signs or symptoms of pain or SOB. IV site on right FA intact and patent. 1 Unit of PRBC infusing. No adverse effect noted at this time. Left FA IV site intact and patent, saline lock. Patient son at bedside. Needs assessed and attended to. Safety measure initiated and call nolan within reached. Continue to monitor.
--- NOTE | 2021-02-12 19:30 | NUR ---
Blood transfusion ongoing. Patient tolerating well. No reactions noted. Will endorse to incoming shift for continuity of care.
[2021-02-12] MEDS: SIMVASTATIN 20 MG TABLET PO SCH (20:31)
[2021-02-12] MEDS: EZETIMIBE 10 MG TABLET PO SCH (20:31)
--- NOTE | 2021-02-12 21:00 | NUR ---
Blood transfusion of 1 unit PRBC completed. No adverse effect noted. Patient BP on left arm after infusion 175/76. Recheck on right arm and BP was 138/98. Patient sound asleep, easily arouse to verbal and tactile stimuli. Appears comfortable. No apparent distress noted. Son at bedside .
[2021-02-13] MEDS: TEMAZEPAM 15 MG CAPSULE PO PRN (00:31)
[2021-02-13 04:35] VITALS: BP 144/72
[2021-02-13] MEDS: LEVOTHYROXINE SODIUM 75 MCG TABLET PO SCH (06:19)
[2021-02-13] MEDS: PANTOPRAZOLE SODIUM 40 MG TABLET.DR PO SCH (06:19)
[2021-02-13] MEDS: BLOOD SUGAR DIAGNOSTIC 1 EACH STRIP VI SCH ×3 (06:38→16:51)
--- NOTE | 2021-02-13 06:44 | NUR ---
Patient slept well last night after Restoril was given. In no acute distress. No signs or symptoms of pain or SOB. IV site on right FA remains intact and patent. IVF infusing. Left FA IV site intact and patent, saline lock. Needs attended to and met. Incontinent care provided. Kept clean and dry. Safety measure maintained and call nolan within reached.
--- NOTE | 2021-02-13 07:45 | NUR ---
Pt received resting in her bed, appears asleep, no distress noted. Pt's mid line is right upper arm, running D5 NS. Pt is A/O x1. No agitation. Side rails are up.
[2021-02-13 08:04] LABS: HEMATOCRIT 28.7 % (31.2-41.9); MEAN CORPUSCULAR HEMOGLOBIN 32.4 uug (24.7-32.8); MEAN CORPUSCULAR VOLUME 95.2 fL (75.5-95.3); PLATELET COUNT (AUTO) 243 K/uL (179-408)
[2021-02-13 08:11] LABS: CREATININE 0.9 mg/dL (0.6-1.3); POTASSIUM 4.1 mmol/L (3.5-5.1)
[2021-02-13] MEDS: GLUCERNA SHAKE 237 ML CAN PO SCH ×3 (09:00→16:52)
[2021-02-13] MEDS: LINZESS 290 MCG PO SCH (09:27)
[2021-02-13] MEDS: FENOFIBRATE NANOCRYSTALLIZED 145 MG TABLET PO SCH (09:27)
[2021-02-13] MEDS: [UNRECOGNIZED DRUG - OTHER] PO SCH (09:27)
[2021-02-13] MEDS: IV D5/ 0.9% NACL 1,000 ML IV PRN (09:35)
[2021-02-13] MEDS: METOPROLOL SUCCINATE XL 25 MG TAB.SR.24H PO SCH (10:09)
[2021-02-13 11:06] VITALS: BP 141/58
[2021-02-13] MEDS ORDERED: NUT.237L36 PO (14:25)
[2021-02-13] MEDS ORDERED: METO-356 PO (14:25)
[2021-02-13] MEDS ORDERED: Blood Sugar Diagnostic VI (14:25)
[2021-02-13] MEDS ORDERED: INSU100V28 SQ (14:25)
[2021-02-13] MEDS ORDERED: CLON0.1T PO (14:25)
[2021-02-13] MEDS ORDERED: TEMA15CA PO (14:25)
[2021-02-13] MEDS ORDERED: Patient May Use Own Med- Md Ok PO (14:25)
[2021-02-13] MEDS ORDERED: SIMV-46 PO (14:25)
[2021-02-13] MEDS: SOD FERRIC GLUC COMPLX/SUCROSE 125 MG in IV NORMAL SALINE 100 ML IV SCH (14:59)
[2021-02-13 15:04] VITALS: BP 107/65
[2021-02-13 15:20] LABS: *IMMUNOFIXATION RESULT Abnormal; *IMMUNOGLOBULIN G, SERUM 191 Low
[2021-02-13 15:21] LABS: ALBUMIN 2.9; ALPHA-1-GLOBULIN 0.2; IMMUNOGLOBULIN A, SERUM 11 Low; IMMUNOGLOBULIN M, SERUM 7 Low
[2021-02-13 15:22] LABS: ALPHA-2-GLOBULIN 0.6; BETA GLOBULIN 0.7; M-SPIKE Not Observed
[2021-02-13 15:23] LABS: A/G RATIO 1.7; GLOBULIN, TOTAL 1.7 Low
--- NOTE | 2021-02-13 16:53 | NUR ---
Pt is being discharged to ARU. Report given to AYLIN Zhong. No distress.
[2021-02-16 11:53] LABS: *OCCULT BLOOD STOOL POSITIVE (NEGATIVE)
== END 2021-02-13 16:53 | DRG 640 ==
LOC: ER 11:14 → TELE3 20:58 → MEDSURG3 22:23
PROVIDERS: ADMIT Nurse Practitioner Acute Care; ATTEND Nurse Practitioner Acute Care
PROC: 30233N1 Transfusion of Nonautologous Red Blood Cells into Peripheral Vein, Percutaneous Approach (ICD-10-PCS; principal; 2021-02-12)
DX: E86.1 Hypovolemia (principal); N17.0 Acute kidney failure with tubular necrosis; G93.41 Metabolic encephalopathy; E87.1 Hypo-osmolality and hyponatremia; E86.0 Dehydration; E83.52 Hypercalcemia; D63.1 Anemia in chronic kidney disease; E03.9 Hypothyroidism, unspecified; E11.22 Type 2 diabetes mellitus with diabetic chronic kidney disease; E78.5 Hyperlipidemia, unspecified; I12.9 Hypertensive chronic kidney disease with stage 1 through stage 4 chronic kidney disease, or unspecified chronic kidney disease; M19.90 Unspecified osteoarthritis, unspecified site; N18.30 Chronic kidney disease, stage 3 unspecified; Z85.3 Personal history of malignant neoplasm of breast; R53.1 Weakness; I25.10 Atherosclerotic heart disease of native coronary artery without angina pectoris; Z20.822 Contact with and (suspected) exposure to COVID-19
CPT/HCPCS: 36415; 70030-TC; 70450; 71045; 72125; 82306; 82784; 83605; 83690; 83735; 83970; 84100; 84155; 84165; 85025; 85730; 86334; 86850; 86900; 86901; 86920; 87040; 87086; 93005; 97161; A4663; C1758; G0378; J0885; J1815; J2270; J2405; J2916; J3475; J3490; J7030; J7040; J7042; P9016

== ENCOUNTER 2021-02-13 17:31 | Inpatient (IN) | payer MEDICARE, OTHER ==
[~2021-02-13] VITALS: Ht 149.9 cm; Wt 49.9 kg
[~2021-02-13 17:31] MED LIST changes: +Blood Sugar Diagnostic VI; +CLON0.1T PO; +INSU100V28 SQ; +METO-356 PO; +NUT.237L36 PO; +Patient May Use Own Med- Md Ok PO; +TEMA15CA PO
[2021-02-13] MEDS ORDERED: INSULIN REGULAR, HUMAN 300 UNIT/3 ML VIAL SQ PRN (17:45)
[2021-02-13] MEDS ORDERED: DEXTROSE 50% 50 ML DISP.SYRIN IV PRN (17:45)
[2021-02-13 18:12] VITALS: BP 107/65
--- NOTE | 2021-02-13 19:05 | NUR ---
Admission report received from Am nurse. Patient sleeping during initial rounds with HOB elevated. No s/s of respiratory distress. Family at bedside sleeping as well. Both awakened when patient name called. Family served as an upholsterer assembly line or provide further information during admission process. Patient speaks Farsi only. Routine admission care done. Plan of care initiated.
[2021-02-13 20:00] VITALS: BP 121/71
[2021-02-13] MEDS: SIMVASTATIN 20 MG TABLET PO SCH (21:01)
[2021-02-13] MEDS: BLOOD SUGAR DIAGNOSTIC 1 EACH STRIP VI SCH (21:04)
[2021-02-14 04:00] VITALS: BP 159/69
[2021-02-14] MEDS: PANTOPRAZOLE SODIUM 40 MG TABLET.DR PO SCH (05:49)
[2021-02-14] MEDS: LEVOTHYROXINE SODIUM 75 MCG TABLET PO SCH (05:49)
[2021-02-14] MEDS: BLOOD SUGAR DIAGNOSTIC 1 EACH STRIP VI SCH ×4 (06:37→20:11)
--- NOTE | 2021-02-14 06:47 | NUR ---
BS 71 mg/dl. Denies any s/s of hypoglycemia. [place] juice was given Will endorse to oncoming nurse accordingly.
[2021-02-14] MEDS ORDERED: LEVOTHYROXINE SODIUM 75 MCG TABLET PO SCH (07:00)
[2021-02-14 08:03] VITALS: BP 134/72
[2021-02-14 08:06] LABS: HEMATOCRIT 32.2 % (31.2-41.9); MEAN CORPUSCULAR HEMOGLOBIN 32.6 uug (24.7-32.8); MEAN CORPUSCULAR VOLUME 95.3 fL (75.5-95.3); PLATELET COUNT (AUTO) 298 K/uL (179-408)
[2021-02-14 08:46] LABS: CREATININE 0.8 mg/dL (0.6-1.3); POTASSIUM 4.1 mmol/L (3.5-5.1)
[2021-02-14] MEDS ORDERED: HOME MED MISCELLANEOUS PO SCH (09:00)
[2021-02-14] MEDS ORDERED: FENOFIBRATE NANOCRYSTALLIZED 145 MG TABLET PO SCH (09:00)
[2021-02-14] MEDS ORDERED: Medication Not On Formulary EA (Linaclotide (Linzess) 290 MCG) PO SCH (09:00)
[2021-02-14] MEDS ORDERED: Medication Not On Formulary EA ([Patient May Use Own Med- Md Ok] 1 EA) PO SCH (09:00)
[2021-02-14] MEDS: FENOFIBRATE NANOCRYSTALLIZED 145 MG TABLET PO SCH (10:25)
[2021-02-14] MEDS: [UNRECOGNIZED DRUG - OTHER] PO SCH (10:25)
[2021-02-14] MEDS: EZETIMIBE 10 MG TABLET PO SCH (10:25)
[2021-02-14] MEDS: METOPROLOL SUCCINATE XL 25 MG TAB.SR.24H PO SCH (10:25)
[2021-02-14] MEDS: LINZESS 290 MCG PO SCH (10:25)
[2021-02-14] MEDS: GLUCERNA SHAKE 237 ML CAN PO SCH ×3 (10:26→17:00)
[2021-02-14] MEDS: CLOPIDOGREL 75 MG TABLET PO SCH (10:26)
[2021-02-14] MEDS ORDERED: PAMIDRONATE DISODIUM 30 MG in IV NORMAL SALINE 500 ML IV ONE (12:00)
[2021-02-14 16:00] VITALS: BP 158/92
--- NOTE | 2021-02-14 18:52 | NUR ---
Pt received awake, calm, no sob, pt is on RA. IV site is intact. Pt is resting in bed, incontinent, no bm at this time. Caregiver at bed site. Pt is compliant with medications.
[2021-02-14] MEDS: SIMVASTATIN 20 MG TABLET PO SCH (20:10)
[2021-02-14 20:21] VITALS: BP 160/80
[2021-02-14] MEDS: CLONIDINE HCL 0.1 MG TABLET PO PRN (21:37)
--- NOTE | 2021-02-14 21:52 | NUR ---
Received pt sleeping comfortably. Aroused easily to verbal stimuli. AAO x2, Farsi speaking. No acute distress noted. No facial cues for pain noted. Blood sugar of 67, no s/s of hypoglycemia noted. [place] juice given. Pt's BP elevated, Clonidine PRN given. Due meds given as ordered. Safety measures maintained. Bed alarm on. Call light within reach. Will continue to monitor.
[2021-02-15 05:40] VITALS: BP 150/73
--- NOTE | 2021-02-15 06:41 | NUR ---
Pt's blood sugar 64, no s/s of hypoglycemia. [place] juice given. Will endorse accordingly to incoming shift.
[2021-02-15] MEDS: LEVOTHYROXINE SODIUM 75 MCG TABLET PO SCH (06:42)
[2021-02-15] MEDS: PANTOPRAZOLE SODIUM 40 MG TABLET.DR PO SCH (06:42)
[2021-02-15] MEDS: BLOOD SUGAR DIAGNOSTIC 1 EACH STRIP VI SCH ×3 (06:43→16:30)
[2021-02-15 07:30] VITALS: BP 146/95
[2021-02-15] MEDS: LINZESS 290 MCG PO SCH (09:48)
[2021-02-15] MEDS: [UNRECOGNIZED DRUG - OTHER] PO SCH (09:48)
[2021-02-15] MEDS: FENOFIBRATE NANOCRYSTALLIZED 145 MG TABLET PO SCH (09:49)
[2021-02-15] MEDS: METOPROLOL SUCCINATE XL 25 MG TAB.SR.24H PO SCH (09:49)
[2021-02-15] MEDS: EZETIMIBE 10 MG TABLET PO SCH (09:49)
[2021-02-15] MEDS: CLOPIDOGREL 75 MG TABLET PO SCH (09:49)
[2021-02-15] MEDS: GLUCERNA SHAKE 237 ML CAN PO SCH ×3 (09:50→16:50)
[2021-02-15 10:38] LABS: HEMATOCRIT 34.1 % (31.2-41.9); MEAN CORPUSCULAR HEMOGLOBIN 32.8 uug (24.7-32.8); MEAN CORPUSCULAR VOLUME 96.4 fL (75.5-95.3); PLATELET COUNT (AUTO) 326 K/uL (179-408)
[2021-02-15 10:44] LABS: CREATININE 1.1 mg/dL (0.6-1.3); POTASSIUM 4.2 mmol/L (3.5-5.1)
[2021-02-15] MEDS ORDERED: AMLODIPINE 2.5 MG TABLET PO SCH (11:00)
[2021-02-15 16:00] VITALS: BP 137/71
--- NOTE | 2021-02-15 18:07 | NUR ---
ACCORDING TO HER SON SHE IS NOT DIABETIC AND DOES NOT HAVE A HISTORY OF DIABETES. THEY WANT ACCU CHECKS TO BE D/C. PT ODES NOT WANT THEM EITHER. HER BS IS GENNA
[2021-02-15] MEDS: SIMVASTATIN 20 MG TABLET PO SCH (20:03)
[2021-02-15] MEDS: CLONIDINE HCL 0.1 MG TABLET PO PRN (20:12)
[2021-02-15 22:34] VITALS: BP 168/67
--- NOTE | 2021-02-16 00:13 | NUR ---
Received pt resting in bed. AAO x2, Farsi speaking. No acute distress noted. No facial cues for pain noted. Pt's BP elevated, Clonidine PRN given. No SOB or CP. Due med given as ordered. Stool collected and sent to lab. Safety measures maintained. Bed alarm on. Call light within reach. Will continue to monitor.
[2021-02-16 00:40] VITALS: BP 128/71
[2021-02-16] MEDS: LEVOTHYROXINE SODIUM 75 MCG TABLET PO SCH (06:10)
[2021-02-16] MEDS: PANTOPRAZOLE SODIUM 40 MG TABLET.DR PO SCH (06:10)
[2021-02-16 06:41] VITALS: BP 122/80
[2021-02-16 07:22] LABS: HEMATOCRIT 30.2 % (31.2-41.9); MEAN CORPUSCULAR HEMOGLOBIN 32.3 uug (24.7-32.8); MEAN CORPUSCULAR VOLUME 95.3 fL (75.5-95.3); PLATELET COUNT (AUTO) 236 K/uL (179-408)
[2021-02-16 07:36] LABS: CREATININE 0.9 mg/dL (0.6-1.3); MAGNESIUM 1.4 mg/dL (1.8-2.4); PHOSPHOROUS 2.3 mg/dL (2.5-4.9); POTASSIUM 3.9 mmol/L (3.5-5.1)
[2021-02-16] MEDS ORDERED: AMLODIPINE 5 MG TABLET PO SCH (09:00)
--- NOTE | 2021-02-16 09:00 | NUR ---
Received pt resting in bed. AAO x2, Farsi speaking. No acute distress noted. No facial cues for pain noted. All due meds given as order. No SOB or CP. Up in W/C with PT daughter at bed side Safety measures maintained. Bed alarm on. Call light within reach. Will continue to monitor.
[2021-02-16] MEDS: FENOFIBRATE NANOCRYSTALLIZED 145 MG TABLET PO SCH (09:40)
[2021-02-16] MEDS: EZETIMIBE 10 MG TABLET PO SCH (09:41)
[2021-02-16] MEDS: CLOPIDOGREL 75 MG TABLET PO SCH (09:42)
[2021-02-16] MEDS: METOPROLOL SUCCINATE XL 25 MG TAB.SR.24H PO SCH (09:42)
[2021-02-16] MEDS: GLUCERNA SHAKE 237 ML CAN PO SCH ×2 (09:52→13:46)
[2021-02-16] MEDS: MAGNESIUM OXIDE 400 MG TABLET PO SCH ×2 (11:46→20:49)
[2021-02-16] MEDS: [UNRECOGNIZED DRUG - OTHER] PO SCH (11:47)
[2021-02-16] MEDS: LINZESS 290 MCG PO SCH (11:47)
[2021-02-16 12:00] VITALS: BP 143/74
[2021-02-16] MEDS ORDERED: MAGNESIUM OXIDE 400 MG TABLET PO ONE (12:00)
[2021-02-16] MEDS: AMLODIPINE 5 MG TABLET PO SCH ×2 (13:46→17:18)
[2021-02-16 16:00] VITALS: BP 123/66
--- NOTE | 2021-02-16 16:06 | NUR ---
INDIVIDUALIZED PLAN OF CARE
[2021-02-16] MEDS ORDERED: ENSURE ENLIVE (VAN) 240 ML LIQUID PO SCH (17:00)
[2021-02-16] MEDS ORDERED: NEUTRA PHOS PACKET PO ONE (17:00)
[2021-02-16 20:46] VITALS: BP 119/68
[2021-02-16] MEDS: SIMVASTATIN 20 MG TABLET PO SCH (20:49)
[2021-02-17 04:48] VITALS: BP 135/72
[2021-02-17] MEDS: LEVOTHYROXINE SODIUM 75 MCG TABLET PO SCH (06:33)
[2021-02-17] MEDS: PANTOPRAZOLE SODIUM 40 MG TABLET.DR PO SCH (06:33)
[2021-02-17 08:00] VITALS: BP 132/81
[2021-02-17] MEDS ORDERED: GLUCERNA SHAKE 237 ML CAN PO SCH (08:00)
[2021-02-17 08:10] LABS: HEMATOCRIT 29.5 % (31.2-41.9); MEAN CORPUSCULAR HEMOGLOBIN 32.5 uug (24.7-32.8); PLATELET COUNT (AUTO) 244 K/uL (179-408)
[2021-02-17 08:32] LABS: MAGNESIUM 1.6 mg/dL (1.8-2.4); PHOSPHOROUS 2.5 mg/dL (2.5-4.9); POTASSIUM 4.4 mmol/L (3.5-5.1)
[2021-02-17] MEDS: EZETIMIBE 10 MG TABLET PO SCH (08:54)
[2021-02-17] MEDS: [UNRECOGNIZED DRUG - OTHER] PO SCH (08:54)
[2021-02-17] MEDS: LINZESS 290 MCG PO SCH (08:54)
[2021-02-17] MEDS: AMLODIPINE 5 MG TABLET PO SCH ×2 (08:54→17:15)
[2021-02-17] MEDS: CLOPIDOGREL 75 MG TABLET PO SCH (08:54)
[2021-02-17] MEDS: FENOFIBRATE NANOCRYSTALLIZED 145 MG TABLET PO SCH (08:54)
[2021-02-17] MEDS: METOPROLOL SUCCINATE XL 25 MG TAB.SR.24H PO SCH (08:55)
[2021-02-17] MEDS: GLUCERNA SHAKE 237 ML CAN PO SCH ×3 (10:30→17:15)
[2021-02-17] MEDS ORDERED: MAGNESIUM OXIDE 400 MG TABLET PO ONE (10:45)
[2021-02-17 11:25] LABS: IRON, SERUM 76 ug/dL (50-175)
[2021-02-17 11:55] LABS: FERRITIN 8316 ng/mL (8-252)
[2021-02-17 16:00] VITALS: BP 112/69
[2021-02-17 20:20] VITALS: BP 150/83
[2021-02-17] MEDS: SIMVASTATIN 20 MG TABLET PO SCH (21:02)
[2021-02-18 04:30] VITALS: BP 118/70
--- NOTE | 2021-02-18 04:53 | NUR ---
Admitted for acute kidney injury/metabolic encepalopathy. AAOx2-3 Confused and disoriented. VSS. Needs attended. Will monitor patient. Denies any pain nor any discomfort. Siderails up for safety. Will monitor patient. Incontinent of urine and BM. No BM this shift. Kept clean and dry. Fall precautions maintained.
[2021-02-18] MEDS: PANTOPRAZOLE SODIUM 40 MG TABLET.DR PO SCH (06:07)
[2021-02-18] MEDS: LEVOTHYROXINE SODIUM 75 MCG TABLET PO SCH (06:07)
[2021-02-18 07:30] VITALS: BP 158/75
[2021-02-18 08:06] LABS: CANCER ANTIGEN 15-3 26.8 U/mL (0.0-25.0)
[2021-02-18] MEDS: FENOFIBRATE NANOCRYSTALLIZED 145 MG TABLET PO SCH (08:49)
[2021-02-18] MEDS: EZETIMIBE 10 MG TABLET PO SCH (08:51)
[2021-02-18] MEDS: LINZESS 290 MCG PO SCH (08:51)
[2021-02-18] MEDS: CLOPIDOGREL 75 MG TABLET PO SCH (08:51)
[2021-02-18] MEDS: [UNRECOGNIZED DRUG - OTHER] PO SCH (08:51)
[2021-02-18] MEDS: GLUCERNA SHAKE 237 ML CAN PO SCH (08:51)
[2021-02-18] MEDS: AMLODIPINE 5 MG TABLET PO SCH ×2 (08:57→16:44)
[2021-02-18] MEDS: METOPROLOL SUCCINATE XL 25 MG TAB.SR.24H PO SCH (08:58)
--- NOTE | 2021-02-18 14:02 | NUR ---
INTERDISCIPLINARY TEAM CONFERENCE
[2021-02-18 16:22] VITALS: BP_SYST 113; BP_SYST 133; BP_DIAS 60; BP_DIAS 73
[2021-02-18] MEDS: ENSURE WITH FIBER 237 ML LIQUID (CHOCOLATE) PO SCH (16:44)
[2021-02-18 20:20] VITALS: BP 122/75
[2021-02-18] MEDS: SIMVASTATIN 20 MG TABLET PO SCH (21:12)
--- NOTE | 2021-02-19 00:42 | NUR ---
In and out performed to collect urine for Protein Electropheresis, collected and sent to lab
[2021-02-19 04:25] VITALS: BP 142/66
[2021-02-19] MEDS: PANTOPRAZOLE SODIUM 40 MG TABLET.DR PO SCH (06:16)
[2021-02-19] MEDS: LEVOTHYROXINE SODIUM 75 MCG TABLET PO SCH (06:16)
--- NOTE | 2021-02-19 06:49 | NUR ---
Shift End Report: VS stable. Slept well. No significant event reported all night. Continue care as planne
[2021-02-19 07:24] LABS: HEMATOCRIT 30.6 % (31.2-41.9); MEAN CORPUSCULAR HEMOGLOBIN 32.4 uug (24.7-32.8); MEAN CORPUSCULAR VOLUME 96.8 fL (75.5-95.3); PLATELET COUNT (AUTO) 265 K/uL (179-408)
[2021-02-19 07:33] VITALS: BP 135/85
[2021-02-19 08:06] LABS: IMMUNOGLOBULIN M, SERUM 5 mg/dL (26-217)
[2021-02-19] MEDS: [UNRECOGNIZED DRUG - OTHER] PO SCH (09:22)
[2021-02-19] MEDS: LINZESS 290 MCG PO SCH (09:22)
[2021-02-19] MEDS: CLOPIDOGREL 75 MG TABLET PO SCH (09:23)
[2021-02-19] MEDS: FENOFIBRATE NANOCRYSTALLIZED 145 MG TABLET PO SCH (09:23)
[2021-02-19] MEDS: EZETIMIBE 10 MG TABLET PO SCH (09:23)
[2021-02-19] MEDS: AMLODIPINE 5 MG TABLET PO SCH ×2 (09:23→17:05)
[2021-02-19] MEDS: METOPROLOL SUCCINATE XL 25 MG TAB.SR.24H PO SCH (09:23)
[2021-02-19] MEDS: ENSURE WITH FIBER 237 ML LIQUID (CHOCOLATE) PO SCH ×3 (09:24→17:06)
--- NOTE | 2021-02-19 10:17 | NUR ---
YARED FROM THE ULTRASOUND REGARDING THE GUIDED NAHED. HE STATED HE WILL CALL BACK REGARDING THE DAY AND TIME IT WILL BE DONE. PT/INR WAS REQUESTED STAT PRIOR TO THE PROCEDURE. CONSENT IN THE CHART. WILL CONTINUE TO MONITOR.
--- NOTE | 2021-02-19 10:24 | NUR ---
FOLLOWED UP ON MEDICAL RECORDS PER ONCO REQUEST. MAYCOL FROM [facility] STATED THEY RECEIVED THE REQUEST BUT UNABLE TO TELL WHEN WILL IT BE RELEASED. WILL CONTINUE TO FOLLOW UP.
[2021-02-19 15:13] VITALS: BP 129/69
--- NOTE | 2021-02-19 16:00 | NUR ---
PATIENT LEFT FOR XR BONE SURVEY COMPLETE WITH RADIOLOGY VIA WHEELCHAIR. PATIENT DENIES PAIN. NO DISTRESS IDENTIFIED.
--- NOTE | 2021-02-19 17:22 | NUR ---
followed up with Dr. Perry regarding the notes of Dr Villagomez to hold the Plavix 3-5days before bone marrow biopsy. Per Dr. Perry, okay to hold. Will continue to monitor.
--- NOTE | 2021-02-19 18:31 | NUR ---
The sons agreed to Dr Villagomez's plan. Consents signed for bone marrow biopsy and aspiration. Per Dr Villagomez, anticipated date in on Tuesday02/24/2021. made aware, dc Plavix. Will continue to monitor.
--- NOTE | 2021-02-19 18:48 | NUR ---
Kept patient patient comfortable during the shift. all needs attended. denies pain or discomfort. Kept call light within reach. safety measure maintained at all times. will continue to monitor.
[2021-02-19] MEDS: SIMVASTATIN 20 MG TABLET PO SCH (20:20)
[2021-02-19 20:25] VITALS: BP 138/74
[2021-02-20 04:30] VITALS: BP 112/56
[2021-02-20] MEDS: LEVOTHYROXINE SODIUM 75 MCG TABLET PO SCH (06:07)
[2021-02-20] MEDS: PANTOPRAZOLE SODIUM 40 MG TABLET.DR PO SCH (06:07)
--- NOTE | 2021-02-20 06:33 | NUR ---
The patient remained comfortable and no distress identified during the shift. denies pain or discomfort. kept call light within reach. all due meds given as ordered. safety measures maintained. frequent checks done. all needs attended. will endorse to the next shift for continuity of care.
[2021-02-20 06:39] LABS: HEMATOCRIT 29.6 % (31.2-41.9); MEAN CORPUSCULAR HEMOGLOBIN 32.4 uug (24.7-32.8); MEAN CORPUSCULAR VOLUME 96.1 fL (75.5-95.3); PLATELET COUNT (AUTO) 182 K/uL (179-408)
[2021-02-20 06:56] LABS: BILIRUBIN,TOTAL 0.5 mg/dL (0.2-1.0); CREATININE 1.1 mg/dL (0.6-1.3); TOTAL PROTEIN, SERUM 4.6 g/dL (6.4-8.2)
[2021-02-20 07:52] VITALS: BP 136/70
[2021-02-20] MEDS: FENOFIBRATE NANOCRYSTALLIZED 145 MG TABLET PO SCH (10:03)
[2021-02-20] MEDS: METOPROLOL SUCCINATE XL 25 MG TAB.SR.24H PO SCH (10:04)
[2021-02-20] MEDS: ENSURE WITH FIBER 237 ML LIQUID (CHOCOLATE) PO SCH ×3 (10:04→16:44)
[2021-02-20] MEDS: AMLODIPINE 5 MG TABLET PO SCH ×2 (10:04→16:44)
[2021-02-20] MEDS: EZETIMIBE 10 MG TABLET PO SCH (10:04)
[2021-02-20] MEDS: [UNRECOGNIZED DRUG - OTHER] PO SCH (10:05)
[2021-02-20] MEDS: LINZESS 290 MCG PO SCH (10:05)
[2021-02-20 15:11] VITALS: BP 130/76
[2021-02-20] MEDS: SIMVASTATIN 20 MG TABLET PO SCH (20:00)
[2021-02-20 20:30] VITALS: BP 132/77
--- NOTE | 2021-02-20 22:36 | NUR ---
Received pt resting in bed. AAO x2, Farsi speaking. Family was at bedside. No acute distress noted. No pain/ discomfort. Due med given as ordered, given crushed with apple sauce. Safety measures maintained. Call light within reach. Will continue to monitor.
--- NOTE | 2021-02-20 23:06 | NUR ---
Pt c/o lower abdominal pain. Not distended, mild tenderness noted. Bladder scan done with 355 cc of urine. Notified Landry DICE TABLE PERSON.
--- NOTE | 2021-02-20 23:12 | NUR ---
Landry PARKING SUPERVISOR ordered antacid and to monitor for suprapubic tenderness. May do straight cath if pt has suprapubic tenderness.
[2021-02-20] MEDS: MAG HYDROX/AL HYDROX/SIMETH 30 ML LIQUID UDC PO PRN (23:28)
[2021-02-21 00:06] LABS: IMMUNOGLOBULIN E, TOTAL <2 IU/mL (6-495)
[2021-02-21] MEDS: TEMAZEPAM 15 MG CAPSULE PO PRN (01:26)
[2021-02-21 04:35] VITALS: BP 111/62
--- NOTE | 2021-02-21 05:44 | NUR ---
Handoff report received from Darcy VIERA. Pt in bed, no acute distress noted. Pt AOx1-2. Pt able to urinate in diaper. Bladder scan done and 100cc found. Pt denies any suprapubic discomfort. Given sleeping pill due to mild restlessness, tolerated well. Safety and comfort provided. No other issues or concerns at this time, will endorse to day shift.
[2021-02-21] MEDS: LEVOTHYROXINE SODIUM 75 MCG TABLET PO SCH (06:26)
[2021-02-21] MEDS: PANTOPRAZOLE SODIUM 40 MG TABLET.DR PO SCH (06:26)
[2021-02-21 08:00] VITALS: BP 116/70
[2021-02-21] MEDS: METOPROLOL SUCCINATE XL 25 MG TAB.SR.24H PO SCH (10:42)
[2021-02-21] MEDS: EZETIMIBE 10 MG TABLET PO SCH (10:42)
[2021-02-21] MEDS: FENOFIBRATE NANOCRYSTALLIZED 145 MG TABLET PO SCH (10:42)
[2021-02-21] MEDS: LINZESS 290 MCG PO SCH (10:42)
[2021-02-21] MEDS: [UNRECOGNIZED DRUG - OTHER] PO SCH (10:42)
[2021-02-21] MEDS: AMLODIPINE 5 MG TABLET PO SCH ×2 (10:43→18:10)
[2021-02-21] MEDS: ENSURE WITH FIBER 237 ML LIQUID (CHOCOLATE) PO SCH ×3 (10:44→18:09)
[2021-02-21 12:00] VITALS: BP_SYST 109; BP_DIAS 0; BP_DIAS 68
[2021-02-21] MEDS ORDERED: METHYL SALICYLATE/MENTHOL CREAM 28 GM TUBE TOP PRN (16:00)
[2021-02-21 16:51] VITALS: BP 121/70
[2021-02-21 16:58] LABS: BILIRUBIN,TOTAL 0.4 mg/dL (0.2-1.0); CREATININE 1.3 mg/dL (0.6-1.3); POTASSIUM 4.1 mmol/L (3.5-5.1); TOTAL PROTEIN, SERUM 4.9 g/dL (6.4-8.2)
[2021-02-21 18:06] LABS: *IGG SUBCLASS 1 95 mg/dL (248-810); *IGG SUBCLASS 2 29 mg/dL (130-555); *IGG SUBCLASS 3 8 mg/dL (15-102); *IGG SUBCLASS 4 1 mg/dL (2-96); *IMMUNOGLOBULIN G, SERUM 143 mg/dL (586-1602)
--- NOTE | 2021-02-21 18:06 | NUR ---
family states she is having poor appetite and request something to increase her appetite spoke with MD ordered remeron 50mg po q hs
[2021-02-21] MEDS: SIMVASTATIN 20 MG TABLET PO SCH (20:12)
[2021-02-21 20:32] VITALS: BP 144/86
[2021-02-21] MEDS ORDERED: MIRTAZAPINE 15 MG TABLET PO SCH (21:00)
[2021-02-21] MEDS: MAG HYDROX/AL HYDROX/SIMETH 30 ML LIQUID UDC PO PRN (21:21)
--- NOTE | 2021-02-22 | NUR ---
Received pt awake on bed with no respiratory distress noted. Pt noted with stomach upset, Maalox susp PRN given. Noted to be effective, pt now comfortably asleep. All needs attended. Call light placed within reach. Will continue to monitor.
[2021-02-22 04:00] VITALS: BP 136/52
[2021-02-22] MEDS: PANTOPRAZOLE SODIUM 40 MG TABLET.DR PO SCH (06:00)
[2021-02-22] MEDS: LEVOTHYROXINE SODIUM 75 MCG TABLET PO SCH (06:00)
[2021-02-22 06:30] LABS: HEMATOCRIT 33.5 % (31.2-41.9); MEAN CORPUSCULAR VOLUME 95.8 fL (75.5-95.3); PLATELET COUNT (AUTO) 254 K/uL (179-408)
[2021-02-22 06:33] LABS: CREATININE 1.2 mg/dL (0.6-1.3); POTASSIUM 4.3 mmol/L (3.5-5.1)
--- NOTE | 2021-02-22 06:42 | NUR ---
Pt slept throughout the night, easily arousable for care. Stool sample collected for occult blood sent to lab. No s/sx of pain and discomfort noted. All needs attended. Call light placed within reach. Frequent visual checks done. Will endorse to next shift for continuity of care.
[2021-02-22 06:44] LABS: *OCCULT BLOOD STOOL POSITIVE (NEGATIVE)
[2021-02-22 07:23] VITALS: BP 132/63
[2021-02-22] MEDS: FENOFIBRATE NANOCRYSTALLIZED 145 MG TABLET PO SCH (08:45)
[2021-02-22] MEDS: AMLODIPINE 5 MG TABLET PO SCH ×2 (08:45→16:13)
[2021-02-22] MEDS: EZETIMIBE 10 MG TABLET PO SCH (08:45)
[2021-02-22] MEDS: METOPROLOL SUCCINATE XL 25 MG TAB.SR.24H PO SCH (08:45)
[2021-02-22] MEDS: ENSURE WITH FIBER 237 ML LIQUID (CHOCOLATE) PO SCH ×3 (08:46→16:24)
[2021-02-22] MEDS: LINZESS 290 MCG PO SCH (08:46)
[2021-02-22] MEDS: [UNRECOGNIZED DRUG - OTHER] PO SCH (08:46)
--- NOTE | 2021-02-22 09:55 | NUR ---
Patient seen by Dr. Pham, son Bennett Bedolla at bedside who spoke to MD. Update given to MD including trending up BUN and patient with poor PO intake with new orders, see order history.
[2021-02-22] MEDS: IV D5/ 0.9% NACL 1,000 ML IV PRN ×2 (10:30→23:34)
[2021-02-22] MEDS: ONDANSETRON 4 MG/2 ML VIAL IV PRN ×2 (12:31→20:38)
[2021-02-22 15:23] VITALS: BP 120/56
--- NOTE | 2021-02-22 19:45 | NUR ---
Received patient in bed. AOX1-2. Farsi speaking. Patient's daughter at bedside, reported patient is feeling nauseous and had diarrhea x3, notified doctor and await further instructions. IV on right hand, gauge 20, running D5 0.9% NS running at 80cc/hr. On room air, patient denies chest pain, shortness of breath or dizziness. Will continue to monitor.
[2021-02-22 20:09] VITALS: BP 111/68
[2021-02-22] MEDS: SIMVASTATIN 20 MG TABLET PO SCH (20:39)
--- NOTE | 2021-02-22 20:45 | NUR ---
Received call From Keara Landry notified regarding Patient diarrhea x3 per morning nurse with foul smells with new order received stool collected for c.diff. Discontinued Linzess .Notified also regarding Stool OB positive.Patient's daughter at bedside made aware. Will continue to monitor.
[2021-02-22] MEDS: MEGESTROL ACETATE 400 MG/10 ML LIQUID UDC PO SCH (20:46)
[2021-02-23 04:09] VITALS: BP 122/62
[2021-02-23] MEDS: PANTOPRAZOLE SODIUM 40 MG TABLET.DR PO SCH (06:33)
[2021-02-23] MEDS: LEVOTHYROXINE SODIUM 75 MCG TABLET PO SCH (06:33)
--- NOTE | 2021-02-23 07:10 | NUR ---
Patient slept through the night. Patient denies SOB, chest pain or dizziness. IV on right hand 20g running D5 0.9% NS at 80cc/hr. All due medications were given as ordered. All needs were attended to and met. Safety and comfort measures maintained. Will endorse to day shift nurse.
[2021-02-23 07:19] LABS: CREATININE 1.2 mg/dL (0.6-1.3); POTASSIUM 4.7 mmol/L (3.5-5.1)
[2021-02-23 07:33] VITALS: BP 126/72
[2021-02-23] MEDS: EZETIMIBE 10 MG TABLET PO SCH (09:54)
[2021-02-23] MEDS: ENSURE WITH FIBER 237 ML LIQUID (CHOCOLATE) PO SCH ×3 (09:54→17:09)
[2021-02-23] MEDS: FENOFIBRATE NANOCRYSTALLIZED 145 MG TABLET PO SCH (09:54)
[2021-02-23] MEDS: METOPROLOL SUCCINATE XL 25 MG TAB.SR.24H PO SCH (09:54)
[2021-02-23] MEDS: AMLODIPINE 5 MG TABLET PO SCH ×2 (09:54→17:14)
[2021-02-23] MEDS: MEGESTROL ACETATE 400 MG/10 ML LIQUID UDC PO SCH ×2 (09:55→20:38)
[2021-02-23 10:16] LABS: MEAN CORPUSCULAR HEMOGLOBIN 32.1 uug (24.7-32.8); PLATELET COUNT (AUTO) 194 K/uL (179-408)
[2021-02-23 15:35] VITALS: BP 125/65
[2021-02-23 17:06] LABS: *PEU ALBUMIN, UR 10.6 % (.); *PEU ALPHA-2-GLOBULIN, UR 2.4 % (.); *PEU GAMMA GLOBULIN, UR 0.3 % (.); *PEU PROTEIN, TOTAL, UR 491.8 mg/dL (Not Estab.); *PEUALPHA-1-GLOBULIN, UR 1.3 % (.); *PEUBETA GLOBULIN, UR 85.3 % (.); *PEUM-SPIKE, UR 81.9 % (Not Observed)
[2021-02-23] MEDS: IV D5/ 0.9% NACL 1,000 ML IV PRN (17:40)
--- NOTE | 2021-02-23 18:48 | NUR ---
Patient pleasant and cooperative throughout shift. Family remains by bedside. No signs of acute distress noted. VSS. Medications given as due. Tolerated well. IV 20 gauge on right hand running D5NS @ 80cc/HR. Safety precautions in place. Will endorse accordingly
[2021-02-23 19:03] LABS: BETA-2 MICROGLOBULIN, SERUM 8.2
[2021-02-23] MEDS: ONDANSETRON 4 MG/2 ML VIAL IV PRN (19:43)
[2021-02-23 20:20] VITALS: BP 113/68
[2021-02-23] MEDS: SIMVASTATIN 20 MG TABLET PO SCH (20:38)
[2021-02-23] MEDS: TEMAZEPAM 15 MG CAPSULE PO PRN (20:41)
[2021-02-24 04:20] VITALS: BP 115/75
[2021-02-24] MEDS: IV D5/ 0.9% NACL 1,000 ML IV PRN (05:52)
[2021-02-24] MEDS: LEVOTHYROXINE SODIUM 75 MCG TABLET PO SCH (06:43)
[2021-02-24] MEDS: PANTOPRAZOLE SODIUM 40 MG TABLET.DR PO SCH (06:43)
[2021-02-24 07:30] VITALS: BP 112/48
[2021-02-24 07:43] LABS: HEMATOCRIT 28.3 % (31.2-41.9); MEAN CORPUSCULAR HEMOGLOBIN 31.8 uug (24.7-32.8); MEAN CORPUSCULAR VOLUME 96.2 fL (75.5-95.3); PLATELET COUNT (AUTO) 154 K/uL (179-408)
--- NOTE | 2021-02-24 07:43 | NUR ---
Patient received sleeping in bed. Bed in semi-fowlers position. On room air. No acute distress noted. Right hand 20g running D5NS @80cc/hr. Safety measures maintained. Call light within reach, will continue to monitor
[2021-02-24 08:11] LABS: CREATININE 1.1 mg/dL (0.6-1.3); POTASSIUM 3.8 mmol/L (3.5-5.1)
[2021-02-24] MEDS: EZETIMIBE 10 MG TABLET PO SCH (08:23)
[2021-02-24] MEDS: FENOFIBRATE NANOCRYSTALLIZED 145 MG TABLET PO SCH (08:23)
[2021-02-24] MEDS: ENSURE WITH FIBER 237 ML LIQUID (CHOCOLATE) PO SCH ×3 (08:24→17:00)
[2021-02-24] MEDS: MEGESTROL ACETATE 400 MG/10 ML LIQUID UDC PO SCH ×2 (08:28→21:16)
[2021-02-24] MEDS: AMLODIPINE 5 MG TABLET PO SCH ×2 (08:29→17:00)
[2021-02-24] MEDS: METOPROLOL SUCCINATE XL 25 MG TAB.SR.24H PO SCH (08:31)
[2021-02-24 15:49] VITALS: BP 107/61
[2021-02-24] MEDS ORDERED: LIDOCAINE HCL 1% 20 ML VIAL IJ PRN (16:15)
[2021-02-24] MEDS ORDERED: MORPHINE SULFATE 2 MG/1 ML DISP.SYRIN IV PRN (16:15)
--- NOTE | 2021-02-24 18:15 | NUR ---
Dr Villagomez bedside to preform bone marrow aspiration and biopsy
[2021-02-24 20:06] LABS: HEMATOCRIT 29.6 % (31.2-41.9); MEAN CORPUSCULAR HEMOGLOBIN 31.5 uug (24.7-32.8); MEAN CORPUSCULAR VOLUME 96.9 fL (75.5-95.3); PLATELET COUNT (AUTO) 163 K/uL (179-408)
[2021-02-24 20:25] VITALS: BP 104/44
[2021-02-24] MEDS: SIMVASTATIN 20 MG TABLET PO SCH (21:16)
--- NOTE | 2021-02-24 22:16 | NUR ---
PM medications administered as due. S/P bone marrow biopsy & aspiration. No signs of acute distress noted. No bleeding noted from incision site. Safety measures maintained. Will continue to monitor
[2021-02-25 04:25] VITALS: BP 125/50
[2021-02-25] MEDS: PANTOPRAZOLE SODIUM 40 MG TABLET.DR PO SCH (06:00)
[2021-02-25] MEDS: LEVOTHYROXINE SODIUM 75 MCG TABLET PO SCH (06:01)
[2021-02-25 08:00] VITALS: BP 147/71
[2021-02-25] MEDS: ENSURE WITH FIBER 237 ML LIQUID (CHOCOLATE) PO SCH ×3 (09:00→17:12)
[2021-02-25] MEDS: AMLODIPINE 5 MG TABLET PO SCH ×2 (09:00→17:15)
[2021-02-25] MEDS: MEGESTROL ACETATE 400 MG/10 ML LIQUID UDC PO SCH ×2 (10:09→20:56)
[2021-02-25] MEDS: FENOFIBRATE NANOCRYSTALLIZED 145 MG TABLET PO SCH (10:12)
[2021-02-25] MEDS: EZETIMIBE 10 MG TABLET PO SCH (10:13)
[2021-02-25] MEDS: METOPROLOL SUCCINATE XL 25 MG TAB.SR.24H PO SCH (10:13)
--- NOTE | 2021-02-25 11:41 | NUR ---
INTERDISCIPLINARY TEAM CONFERENCE
[2021-02-25 16:00] VITALS: BP 106/61
--- NOTE | 2021-02-25 18:55 | NUR ---
patient remain comfortable and no distress identified during the shift. denies pain or discomfort. Up in W/C sitting for a while family and insurance healthcare consultant at bed side feeder,kept call light within reach. all due meds given as ordered. safety measures maintained. frequent checks done. all needs attended. will endorse to the next shift for continuity of care.
[2021-02-25 20:00] VITALS: BP 113/69
[2021-02-25] MEDS: SIMVASTATIN 20 MG TABLET PO SCH (20:56)
[2021-02-26 04:00] VITALS: BP 140/68
[2021-02-26] MEDS: LEVOTHYROXINE SODIUM 50 MCG TABLET PO SCH (06:28)
[2021-02-26] MEDS: PANTOPRAZOLE SODIUM 40 MG TABLET.DR PO SCH (06:28)
[2021-02-26 07:56] LABS: HEMATOCRIT 29.7 % (31.2-41.9); MEAN CORPUSCULAR HEMOGLOBIN 31.9 uug (24.7-32.8); MEAN CORPUSCULAR VOLUME 95.5 fL (75.5-95.3); PLATELET COUNT (AUTO) 157 K/uL (179-408)
[2021-02-26 08:16] LABS: CREATININE 1.1 mg/dL (0.6-1.3); MAGNESIUM 1.6 mg/dL (1.8-2.4); PHOSPHOROUS 2.4 mg/dL (2.5-4.9)
[2021-02-26] MEDS: MEGESTROL ACETATE 400 MG/10 ML LIQUID UDC PO SCH ×2 (08:32→21:39)
[2021-02-26] MEDS: EZETIMIBE 10 MG TABLET PO SCH (08:32)
[2021-02-26] MEDS: FENOFIBRATE NANOCRYSTALLIZED 145 MG TABLET PO SCH (08:32)
[2021-02-26] MEDS: AMLODIPINE 5 MG TABLET PO SCH ×2 (08:37→16:44)
[2021-02-26] MEDS: METOPROLOL SUCCINATE XL 25 MG TAB.SR.24H PO SCH (08:37)
[2021-02-26] MEDS: ENSURE WITH FIBER 237 ML LIQUID (CHOCOLATE) PO SCH ×3 (09:18→17:33)
[2021-02-26] MEDS ORDERED: MAGNESIUM OXIDE 400 MG TABLET PO ONE ×2 (10:15→21:00)
[2021-02-26] MEDS ORDERED: NEUTRA PHOS PACKET PO ONE (15:30)
[2021-02-26 16:00] VITALS: BP 108/75
--- NOTE | 2021-02-26 18:24 | NUR ---
PT STABLE THROUGHOUT THE SHIFT. NO S/S OF ACUTE DISTRESS OR PAIN. SEEN BY PT/OT, UP IN THE WHEELCHAIR. COMFORT CARE AND NEEDS ATTENDED. CAREGIVER AT THE BEDSIDE. SAFETY MEASURES IN PLACE. WILL ENDORSE TO ONCOMING NURSE.
[2021-02-26 20:11] VITALS: BP 138/74
--- NOTE | 2021-02-26 20:22 | NUR ---
[facility] PATIENT TO INFORM ABOUT THE PATIENT MAGNESIUM AND PHOSPHOROUS LEVEL IS LOW .MESSAGE LEFT AWAITING RESPONSE. Addendum: 02/26/21 at 2311 by [facility] INPATIENT RN2 RN poatient is shouting intermittently and attemps to get out of bed, sleeping medication given
[2021-02-26] MEDS: SIMVASTATIN 20 MG TABLET PO SCH (21:38)
[2021-02-26] MEDS: TEMAZEPAM 15 MG CAPSULE PO PRN (23:01)
[2021-02-27 00:56] VITALS: BP 129/93
--- NOTE | 2021-02-27 01:19 | NUR ---
dozing off intermittently . vital signsw checked and recorded
--- NOTE | 2021-02-27 04:29 | NUR ---
protonix dose change to packet as medication need to be crushed and given with apple sauce
[2021-02-27 04:35] VITALS: BP 141/79
--- NOTE | 2021-02-27 06:19 | NUR ---
asleep. medication due will be given when awake,
[2021-02-27 07:01] LABS: CREATININE 1.1 mg/dL (0.6-1.3); PHOSPHOROUS 2.7 mg/dL (2.5-4.9); POTASSIUM 4.1 mmol/L (3.5-5.1)
[2021-02-27] MEDS: LEVOTHYROXINE SODIUM 50 MCG TABLET PO SCH (07:08)
[2021-02-27 07:30] VITALS: BP 131/64
[2021-02-27] MEDS: AMLODIPINE 5 MG TABLET PO SCH ×2 (10:01→17:30)
[2021-02-27] MEDS: METOPROLOL SUCCINATE XL 25 MG TAB.SR.24H PO SCH (10:01)
[2021-02-27] MEDS: MEGESTROL ACETATE 400 MG/10 ML LIQUID UDC PO SCH ×2 (10:01→21:07)
[2021-02-27] MEDS: CLOPIDOGREL 75 MG TABLET PO SCH (10:01)
[2021-02-27] MEDS: EZETIMIBE 10 MG TABLET PO SCH (10:01)
[2021-02-27] MEDS: PANTOPRAZOLE ORAL SUSPENSION 40 MG SUSPDR.PKT PO SCH (10:02)
[2021-02-27] MEDS: ENSURE WITH FIBER 237 ML LIQUID (CHOCOLATE) PO SCH ×3 (10:03→17:32)
[2021-02-27] MEDS: FENOFIBRATE NANOCRYSTALLIZED 145 MG TABLET PO SCH (10:03)
[2021-02-27] MEDS ORDERED: ACETAMINOPHEN 325 MG TABLET PO PRN (13:00)
[2021-02-27 15:39] VITALS: BP 142/72
[2021-02-27] MEDS: METHYL SALICYLATE/MENTHOL CREAM 28 GM TUBE TOP SCH ×2 (17:32→17:34)
--- NOTE | 2021-02-27 19:30 | NUR ---
Received patient lying in bed awake. AOX2, farsi speaking and garbled speech. Patient denies shortness of breath, dizziness or chest pain. Currently on room air, saturating at 95%. Safety measures and aspiration precaution initiated. Bed alarm activated and call light button within reach.
[2021-02-27 20:18] VITALS: BP 132/72
[2021-02-27] MEDS: SIMVASTATIN 20 MG TABLET PO SCH (21:07)
[2021-02-28 04:17] VITALS: BP 140/65
[2021-02-28] MEDS: LEVOTHYROXINE SODIUM 50 MCG TABLET PO SCH (06:16)
[2021-02-28 06:21] LABS: HEMATOCRIT 29.9 % (31.2-41.9); MEAN CORPUSCULAR HEMOGLOBIN 31.4 uug (24.7-32.8); MEAN CORPUSCULAR VOLUME 95.4 fL (75.5-95.3); PLATELET COUNT (AUTO) 141 K/uL (179-408)
--- NOTE | 2021-02-28 06:33 | NUR ---
Patient slept intermittently through the night. Awake and alert. No acute distress noted at this time. All due medications were given as ordered. Wound on lower back was cleansed and covered with gauze, photo taken and attached to chart. All other needs were attended to and met. Safety measures and aspiration precautions were maintained.
[2021-02-28 08:00] VITALS: BP 131/62
[2021-02-28] MEDS: ENSURE WITH FIBER 237 ML LIQUID (CHOCOLATE) PO SCH ×3 (08:55→16:08)
[2021-02-28] MEDS: EZETIMIBE 10 MG TABLET PO SCH (08:56)
[2021-02-28] MEDS: METOPROLOL SUCCINATE XL 25 MG TAB.SR.24H PO SCH (08:56)
[2021-02-28] MEDS: CLOPIDOGREL 75 MG TABLET PO SCH (08:57)
[2021-02-28] MEDS: FENOFIBRATE NANOCRYSTALLIZED 145 MG TABLET PO SCH (08:57)
[2021-02-28] MEDS: AMLODIPINE 5 MG TABLET PO SCH ×2 (08:57→16:10)
[2021-02-28] MEDS: PANTOPRAZOLE ORAL SUSPENSION 40 MG SUSPDR.PKT PO SCH (08:57)
--- NOTE | 2021-02-28 09:30 | NUR ---
Received pt form putty maker. Pt is a/o x 2, Farsi speaking. Caregiver is at bedside. Pt is stable on room air, wheelchair/bedbound, incontinent x 2. Pt takes medications crushed into applesauce. refuses to eat meals but drinks ensure. Pt is not in any acute distress, comfort measures provided. Call light within reach, will continue to monitor pt.
[2021-02-28] MEDS: METHYL SALICYLATE/MENTHOL CREAM 28 GM TUBE TOP SCH ×2 (09:40→16:08)
[2021-02-28] MEDS: MEGESTROL ACETATE 400 MG/10 ML LIQUID UDC PO SCH ×2 (09:40→21:06)
[2021-02-28 12:35] VITALS: BP 126/55
[2021-02-28] MEDS: ONDANSETRON 4 MG/2 ML VIAL IV PRN (13:39)
[2021-02-28] MEDS ORDERED: ONDANSETRON HCL 4 MG TABLET PO PRN (13:45)
--- NOTE | 2021-02-28 13:45 | NUR ---
Pt felt nauseated, zofran was ordered as IV but pt does not have IV access. Asked pharmacy to change to PO. Did not administer IV zofran
[2021-02-28 16:20] VITALS: BP 131/67
[2021-02-28 20:20] VITALS: BP 122/71
[2021-02-28] MEDS: SIMVASTATIN 20 MG TABLET PO SCH (21:07)
[2021-02-28] MEDS: TEMAZEPAM 15 MG CAPSULE PO PRN (21:07)
--- NOTE | 2021-03-01 02:02 | NUR ---
Received patient lying in bed awake. AOX2, farsi speaking and garbled speech. Patient denies shortness of breath, dizziness or chest pain. Currently on room air, saturating at 94%. Safety measures and aspiration precaution initiated. Bed alarm activated and call light button within reach. Addendum: 03/01/21 at 0213 by MOMO LEMUS RN Assessment done at 19:30
[2021-03-01 04:20] VITALS: BP 136/70
[2021-03-01] MEDS: LEVOTHYROXINE SODIUM 50 MCG TABLET PO SCH (06:20)
--- NOTE | 2021-03-01 06:43 | NUR ---
Patient slept through the night. Reoriented patient to time and date. No complains of shortness of breath, chest pain or dizziness. All due medications were given as ordered. Safety measures and aspiration precautions were maintained.
--- NOTE | 2021-03-01 07:30 | NUR ---
Pt is awake, calm on approach. Pt has poor intake. Encouraged to eat. Pt was able to take her medications. Side rails are up and call light is within reach.
[2021-03-01 07:32] VITALS: BP 123/73
[2021-03-01] MEDS: PANTOPRAZOLE ORAL SUSPENSION 40 MG SUSPDR.PKT PO SCH (10:01)
[2021-03-01] MEDS: FENOFIBRATE NANOCRYSTALLIZED 145 MG TABLET PO SCH (10:01)
[2021-03-01] MEDS: MEGESTROL ACETATE 400 MG/10 ML LIQUID UDC PO SCH ×2 (10:01→21:28)
[2021-03-01] MEDS: EZETIMIBE 10 MG TABLET PO SCH (10:01)
[2021-03-01] MEDS: AMLODIPINE 5 MG TABLET PO SCH ×2 (10:01→17:48)
[2021-03-01] MEDS: CLOPIDOGREL 75 MG TABLET PO SCH (10:02)
[2021-03-01] MEDS: METOPROLOL SUCCINATE XL 25 MG TAB.SR.24H PO SCH (10:02)
[2021-03-01] MEDS: METHYL SALICYLATE/MENTHOL CREAM 28 GM TUBE TOP SCH ×2 (10:03→17:50)
[2021-03-01] MEDS: ENSURE WITH FIBER 237 ML LIQUID (CHOCOLATE) PO SCH ×3 (10:03→17:48)
[2021-03-01 16:13] VITALS: BP 111/76
--- NOTE | 2021-03-01 19:30 | NUR ---
Received patient lying in bed, with family at bedside. Patient denies SOB, chest pain or dizziness. Safety measures and aspiration precautions were initiated. Bed in locked position and call light within reach.
[2021-03-01 20:12] VITALS: BP 132/76
[2021-03-01] MEDS: SIMVASTATIN 20 MG TABLET PO SCH (21:28)
[2021-03-02 04:15] VITALS: BP 124/74
--- NOTE | 2021-03-02 05:40 | NUR ---
Shift End Report: Slept good. No significant event reported all night. All needs attended and met. Continue current rehab plan of care. VS stable.
[2021-03-02] MEDS: LEVOTHYROXINE SODIUM 50 MCG TABLET PO SCH (06:24)
[2021-03-02 07:32] LABS: HEMATOCRIT 26.6 % (31.2-41.9); MEAN CORPUSCULAR VOLUME 95.2 fL (75.5-95.3); PLATELET COUNT (AUTO) 130 K/uL (179-408)
[2021-03-02 07:47] LABS: CREATININE 1.2 mg/dL (0.6-1.3); MAGNESIUM 1.6 mg/dL (1.8-2.4); POTASSIUM 4.3 mmol/L (3.5-5.1)
[2021-03-02 08:00] VITALS: BP 141/78
[2021-03-02] MEDS ORDERED: MAGNESIUM SULFATE/D5W 100 ML IV ONE (08:30)
[2021-03-02] MEDS: AMLODIPINE 5 MG TABLET PO SCH ×2 (08:49→16:36)
[2021-03-02] MEDS: EZETIMIBE 10 MG TABLET PO SCH (08:49)
[2021-03-02] MEDS: PANTOPRAZOLE ORAL SUSPENSION 40 MG SUSPDR.PKT PO SCH (08:49)
[2021-03-02] MEDS: MEGESTROL ACETATE 400 MG/10 ML LIQUID UDC PO SCH ×2 (08:49→21:00)
[2021-03-02] MEDS: FENOFIBRATE NANOCRYSTALLIZED 145 MG TABLET PO SCH (08:49)
[2021-03-02] MEDS: CLOPIDOGREL 75 MG TABLET PO SCH (08:50)
[2021-03-02] MEDS: METHYL SALICYLATE/MENTHOL CREAM 28 GM TUBE TOP SCH ×2 (08:50→16:36)
[2021-03-02] MEDS: ENSURE WITH FIBER 237 ML LIQUID (CHOCOLATE) PO SCH ×3 (08:50→16:36)
[2021-03-02] MEDS: METOPROLOL SUCCINATE XL 25 MG TAB.SR.24H PO SCH (08:50)
[2021-03-02 16:00] VITALS: BP 96/60
--- NOTE | 2021-03-02 18:23 | NUR ---
PATIENT REMAINED STABLE DURING THE SHIFT. NO DISTRESS IDENTIFIED. ALL DUE MEDS GIVEN ORDERED. ALL NEEDS ATTENDED. KEPT CALL LIGHT WITHIN REACH. FREQUENT CHECKS DONE. SAFETY MEASURES MAINTAINED. INFORMED FAMILY TO ASK FOR HELP WHEN TRANSFERRING THE PATIENT, EDUCATED ON SAFETY, NOTED WITH UNDERSTANDING. ENDORSED TO THE NEXT SHIFT.
[2021-03-02] MEDS: MAG HYDROX/AL HYDROX/SIMETH 30 ML LIQUID UDC PO PRN (18:32)
--- NOTE | 2021-03-02 18:33 | NUR ---
PATIENT REPORTED STOMACH UPSET, MAALOX PRN GIVEN ORDERED. WILL ENDORSE TO THE NEXT SHIFT TO CONTINUE TO MONITOR.
[2021-03-02 20:35] VITALS: BP 105/54
[2021-03-02] MEDS: SIMVASTATIN 20 MG TABLET PO SCH (21:00)
--- NOTE | 2021-03-03 03:45 | NUR ---
Received patient lying in bed, with family at bedside. Patient had upset stomach at am shift no further c/o upset stomach, all due medication administered as ordered no adverse reaction noted, Patient denies SOB, chest pain or dizziness. Safety measures and aspiration precautions were initiated. Bed in locked position and call light within reach. continue with current plan of care.
[2021-03-03 04:17] VITALS: BP 110/57
[2021-03-03] MEDS: LEVOTHYROXINE SODIUM 50 MCG TABLET PO SCH (06:18)
[2021-03-03 07:30] VITALS: BP 103/63
[2021-03-03 07:47] LABS: HEMATOCRIT 26.5 % (31.2-41.9); MEAN CORPUSCULAR HEMOGLOBIN 31.5 uug (24.7-32.8); MEAN CORPUSCULAR VOLUME 94.9 fL (75.5-95.3); PLATELET COUNT (AUTO) 137 K/uL (179-408)
[2021-03-03 08:01] LABS: BILIRUBIN,TOTAL 0.6 mg/dL (0.2-1.0); CREATININE 1.3 mg/dL (0.6-1.3); MAGNESIUM 1.9 mg/dL (1.8-2.4); PHOSPHOROUS 3.9 mg/dL (2.5-4.9); POTASSIUM 4.2 mmol/L (3.5-5.1); TOTAL PROTEIN, SERUM 4.3 g/dL (6.4-8.2)
[2021-03-03] MEDS: AMLODIPINE 5 MG TABLET PO SCH (09:00)
[2021-03-03] MEDS: METHYL SALICYLATE/MENTHOL CREAM 28 GM TUBE TOP SCH (09:00)
--- NOTE | 2021-03-03 10:30 | NUR ---
Patient in bed, resting. Caregiver at bedside. On room air. No signs of acute distress noted. Morning meds administered as due. Tolerated well
[2021-03-03] MEDS: EZETIMIBE 10 MG TABLET PO SCH (10:41)
[2021-03-03] MEDS: FENOFIBRATE NANOCRYSTALLIZED 145 MG TABLET PO SCH (10:41)
[2021-03-03] MEDS: CLOPIDOGREL 75 MG TABLET PO SCH (10:41)
[2021-03-03] MEDS: PANTOPRAZOLE ORAL SUSPENSION 40 MG SUSPDR.PKT PO SCH (10:42)
[2021-03-03 11:00] VITALS: BP 110/57
[2021-03-03] MEDS: METOPROLOL SUCCINATE XL 25 MG TAB.SR.24H PO SCH (11:00)
[2021-03-03] MEDS: MEGESTROL ACETATE 400 MG/10 ML LIQUID UDC PO SCH (11:00)
[2021-03-03] MEDS: ENSURE WITH FIBER 237 ML LIQUID (CHOCOLATE) PO SCH ×2 (11:00→13:05)
--- NOTE | 2021-03-03 12:47 | NUR ---
Transfer to Tele per MD
--- NOTE | 2021-03-03 13:50 | NUR ---
PT DISCHARGED FROM ARU, ADMIT TO TELE. DAUGHTER AT BEDSIDE, MADE AWARE. A&OX2, PER DAUGHTER. ON ROOM AIR, VSS. IV ON LEFT WRIST GAUGE 20. PATENT AND INTACT. DC PAPERWORK PROVIDED
== END 2021-03-03 14:03 | disposition short-term general hospital (02) | DRG 70 ==
PROVIDERS: ADMIT Physical Medicine & Rehabilitation Pain Medicine; ATTEND Physical Medicine & Rehabilitation Pain Medicine
PROC: 0GBG3ZX Excision of Left Thyroid Gland Lobe, Percutaneous Approach, Diagnostic (ICD-10-PCS; principal; 2021-02-20)
PROC: 07DR3ZX Extraction of Iliac Bone Marrow, Percutaneous Approach, Diagnostic (ICD-10-PCS; 2021-02-24)
DX: G93.41 Metabolic encephalopathy (principal); N17.0 Acute kidney failure with tubular necrosis; R53.2 Functional quadriplegia; D68.59 Other primary thrombophilia; E44.0 Moderate protein-calorie malnutrition; E03.9 Hypothyroidism, unspecified; E78.5 Hyperlipidemia, unspecified; I25.10 Atherosclerotic heart disease of native coronary artery without angina pectoris; D47.2 Monoclonal gammopathy; D53.9 Nutritional anemia, unspecified; E04.1 Nontoxic single thyroid nodule; E83.42 Hypomagnesemia; E83.52 Hypercalcemia; E86.1 Hypovolemia; E86.0 Dehydration; F03.90 Unspecified dementia, unspecified severity, without behavioral disturbance, psychotic disturbance, mood disturbance, and anxiety; I70.0 Atherosclerosis of aorta; I77.810 Thoracic aortic ectasia; I11.0 Hypertensive heart disease with heart failure; I50.9 Heart failure, unspecified; R13.10 Dysphagia, unspecified; S42.132A Displaced fracture of coracoid process, left shoulder, initial encounter for closed fracture; X58.XXXA Exposure to other specified factors, initial encounter; Y93.9 Activity, unspecified; Y92.9 Unspecified place or not applicable; Z74.01 Bed confinement status; Z79.02 Long term (current) use of antithrombotics/antiplatelets; Z79.899 Other long term (current) drug therapy; Z85.3 Personal history of malignant neoplasm of breast; M25.532 Pain in left wrist; M25.561 Pain in right knee; M25.562 Pain in left knee; R26.2 Difficulty in walking, not elsewhere classified; R97.8 Other abnormal tumor markers; R53.1 Weakness; Z88.6 Allergy status to analgesic agent; M19.012 Primary osteoarthritis, left shoulder; M19.011 Primary osteoarthritis, right shoulder; M75.52 Bursitis of left shoulder; M75.51 Bursitis of right shoulder
CPT/HCPCS: 10021; 36415; 70030-TC; 71045; 71250; 76641-TC; 76857; 82378; 82747; 82784; 82785; 83550; 83735; 84100; 84156; 84166; 84443; 85014; 85025; 85610; 85730; 86300; 88173-TC; 93307; 97161; A4663; A6209; C1758; J2270; J2405; J2430; J3475; J3490; J7040; J7042; J7050; J8999; Q0162

== ENCOUNTER 2021-03-03 15:13 | Inpatient (IN) | payer MEDICARE, OTHER ==
[~2021-03-03] VITALS: Ht 149.9 cm; Wt 49.9 kg
[~2021-03-03 15:13] MED LIST changes: -LOSA1TAB3 PO; -METO25TA3 PO
--- NOTE | 2021-03-03 15:30 | NUR ---
Pt went into V-tach for 25 beats @1428 between admission from ARU to [facility], now in sinus tach. made aware
[2021-03-03 15:51] VITALS: BP 116/68
--- NOTE | 2021-03-03 16:30 | NUR ---
Patient admitted to Tele from ARU. Upon assessment, pt is A&Ox2. Translation provided by daughter at bedside. On room air, VSS. No acute distress noted. Left forearm 20g intact and patent. Skin intact. Sinus tachy on telemetry, HR 102-109. Safety measures maintained, call light within reach, will continue to monitor
[2021-03-03] MEDS ORDERED: ONDANSETRON HCL 4 MG TABLET PO PRN (17:00)
[2021-03-03] MEDS: ENSURE WITH FIBER 237 ML LIQUID (CHOCOLATE) PO SCH (17:44)
[2021-03-03] MEDS ORDERED: INSULIN REGULAR, HUMAN 300 UNIT/3 ML VIAL SQ PRN (17:45)
[2021-03-03] MEDS ORDERED: ONDANSETRON 4 MG/2 ML VIAL IV PRN (18:00)
[2021-03-03] MEDS: MAG HYDROX/AL HYDROX/SIMETH 30 ML LIQUID UDC PO PRN (20:00)
[2021-03-03 20:15] VITALS: BP 115/75
[2021-03-03] MEDS: SIMVASTATIN 20 MG TABLET PO SCH (20:55)
[2021-03-03] MEDS ORDERED: DOCUSATE SODIUM 100 MG CAPSULE PO SCH (21:00)
[2021-03-03] MEDS: DOCUSATE SODIUM 100 MG/10 ML LIQUID UDC PO SCH (21:01)
[2021-03-03] MEDS: ACETAMINOPHEN 325 MG TABLET PO PRN (22:32)
[2021-03-04 00:16] VITALS: BP 120/70
[2021-03-04] MEDS: MAG HYDROX/AL HYDROX/SIMETH 30 ML LIQUID UDC PO PRN ×3 (01:14→20:27)
[2021-03-04 04:25] VITALS: BP 122/71
[2021-03-04] MEDS: LEVOTHYROXINE SODIUM 75 MCG TABLET PO SCH (06:07)
[2021-03-04] MEDS: PANTOPRAZOLE SODIUM 40 MG TABLET.DR PO SCH (06:08)
--- NOTE | 2021-03-04 06:47 | NUR ---
pt rested well in between care; no acute distress; c/o abd'l pain, pt had passed gas; needs attended. VSS; afebrile; SR;
[2021-03-04 06:53] LABS: HEMATOCRIT 27.5 % (31.2-41.9); MEAN CORPUSCULAR HEMOGLOBIN 31.6 uug (24.7-32.8); PLATELET COUNT (AUTO) 146 K/uL (179-408)
[2021-03-04] MEDS ORDERED: LEVOTHYROXINE SODIUM 50 MCG TABLET PO SCH (07:00)
[2021-03-04 07:03] LABS: ALANINE AMINOTRANSFERASE 32 U/L (14-59); ALKALINE PHOSPHATASE 46 U/L (50-136); ASPARTATE AMINOTRANSFERASE 30 U/L (15-37); BILIRUBIN,TOTAL 0.6 mg/dL (0.2-1.0); CARBON DIOXIDE 22 mmol/L (21-32); CHLORIDE 110 mmol/L (98-107); CHOLESTEROL 79 mg/dL (<200); CREATININE 1.5 mg/dL (0.6-1.3); GLUCOSE 84 mg/dL (74-106); HDL CHOLESTEROL 26 mg/dL (40-60); MAGNESIUM 2.1 mg/dL (1.8-2.4); POTASSIUM 4.2 mmol/L (3.5-5.1); TOTAL PROTEIN, SERUM 4.4 g/dL (6.4-8.2); TRIGLYCERIDES 110 MG/DL (30-150); UREA NITROGEN, BLOOD 61 mg/dL (7-18)
[2021-03-04 07:25] LABS: THYROID STIMULATING HORMONE 38.556 mIU/mL (0.358-3.740)
--- NOTE | 2021-03-04 07:30 | NUR ---
received change of shift report, pt a/ox2 farsi speaking, caregiver at bedside, pt NSR on tele monitor, on room air, no signs of distress, no reports of pain, saturating at 96%. pt on [facility] soft cardiac diet, pills crushed, last BM 03/03. IV on the left FA 20g, hep lock, call light within reach, bed low and locked, will continue with plan of care.
[2021-03-04] MEDS: LINZESS 290MCG CAPSULE PO SCH (08:56)
[2021-03-04] MEDS: CLOPIDOGREL 75 MG TABLET PO SCH (08:56)
[2021-03-04] MEDS: ENSURE WITH FIBER 237 ML LIQUID (CHOCOLATE) PO SCH ×3 (09:00→17:40)
[2021-03-04] MEDS ORDERED: FUROSEMIDE 20 MG/2 ML VIAL IV SCH (09:00)
[2021-03-04] MEDS: GLUCERNA SHAKE 237 ML CAN PO SCH ×3 (09:00→17:40)
[2021-03-04] MEDS ORDERED: Medication Not On Formulary EA ([Patient May Use Own Med- Md Ok] 1 EA) PO SCH (09:00)
[2021-03-04] MEDS ORDERED: AMLODIPINE 5 MG TABLET PO SCH (09:00)
[2021-03-04] MEDS ORDERED: METOPROLOL SUCCINATE XL 25 MG TAB.SR.24H PO SCH (09:00)
[2021-03-04 12:00] VITALS: BP 130/70
[2021-03-04 16:00] VITALS: BP 110/69
--- NOTE | 2021-03-04 19:30 | NUR ---
Received pt awake, alert and orientedx2. Pt in no acute respiratory distress.Son at bedside. Iv intact. Pt complaint of stomach pain. Safety and comfort provided. Will continue to monitor.
[2021-03-04 20:20] VITALS: BP 127/72
[2021-03-04] MEDS: SIMVASTATIN 20 MG TABLET PO SCH (20:26)
[2021-03-04] MEDS: ACETAMINOPHEN 325 MG TABLET PO PRN (20:26)
[2021-03-04] MEDS: DOCUSATE SODIUM 100 MG/10 ML LIQUID UDC PO SCH (20:27)
--- NOTE | 2021-03-04 21:00 | NUR ---
At Tylenol 650 mg prn given for stomach pain and also Maalox 30 ml at . Pt tolerated it well. Will continue to monitor.
[2021-03-05 00:03] VITALS: BP 100/48
[2021-03-05] MEDS: IV 1/2NS 1000 ML 1,000 ML IV PRN ×2 (01:00→17:17)
[2021-03-05 04:18] VITALS: BP 130/65
--- NOTE | 2021-03-05 05:22 | NUR ---
Pt slept intermittently. Pt in no acute distress. Iv intact. Prescribed medication given and pt tolerated it well. Safety and comfort provided. All needs are met. Will endorse to incoming nurse for continuity of care.
[2021-03-05] MEDS: PANTOPRAZOLE SODIUM 40 MG TABLET.DR PO SCH (06:25)
[2021-03-05] MEDS: LEVOTHYROXINE SODIUM 75 MCG TABLET PO SCH (06:25)
[2021-03-05 08:20] VITALS: BP 124/71
[2021-03-05] MEDS ORDERED: METOPROLOL SUCCINATE XL 25 MG TAB.SR.24H PO SCH (09:00)
[2021-03-05] MEDS: ENSURE WITH FIBER 237 ML LIQUID (CHOCOLATE) PO SCH ×3 (09:18→17:00)
[2021-03-05] MEDS: GLUCERNA SHAKE 237 ML CAN PO SCH ×3 (09:18→17:35)
[2021-03-05] MEDS: LINZESS 290MCG CAPSULE PO SCH (09:58)
[2021-03-05] MEDS: CLOPIDOGREL 75 MG TABLET PO SCH (09:58)
[2021-03-05] MEDS: METOPROLOL SUCCINATE XL 50 MG TAB.SR.24H PO SCH (09:58)
[2021-03-05 11:55] VITALS: BP 114/73
--- NOTE | 2021-03-05 12:31 | NUR ---
Pt is a/o 3, hard of hearing, communication sometimes unclear. Pt's HR fluctuates from 107-170s,sinus- sinus tachy on tele MD and curing room supervisor notified. Pt is more active, sat up on edge of bed with assistance, eats a small amount. Pt not in any acute distress or discomfort, call light within reach, family and caregiver at bedside. Will continue to monitor.
[2021-03-05] MEDS: MAG HYDROX/AL HYDROX/SIMETH 30 ML LIQUID UDC PO PRN ×2 (15:03→20:25)
[2021-03-05 16:34] VITALS: BP 129/81
[2021-03-05] MEDS: DOCUSATE SODIUM 100 MG/10 ML LIQUID UDC PO SCH (20:30)
[2021-03-05] MEDS: SIMVASTATIN 20 MG TABLET PO SCH (20:31)
[2021-03-05 20:39] VITALS: BP 117/73
[2021-03-06 04:25] VITALS: BP 116/72
--- NOTE | 2021-03-06 05:43 | NUR ---
Slept intermittently. No distress noted. IV site intact. SR-ST on tele. No other issues or concerns at this time, will endorse to day shift.
[2021-03-06] MEDS: LEVOTHYROXINE SODIUM 75 MCG TABLET PO SCH (06:08)
[2021-03-06] MEDS: PANTOPRAZOLE SODIUM 40 MG TABLET.DR PO SCH (06:09)
[2021-03-06] MEDS: IV 1/2NS 1000 ML 1,000 ML IV PRN ×2 (06:13→19:41)
[2021-03-06 07:09] LABS: HEMATOCRIT 30.5 % (31.2-41.9); MEAN CORPUSCULAR HEMOGLOBIN 31.6 uug (24.7-32.8); MEAN CORPUSCULAR VOLUME 95.5 fL (75.5-95.3); PLATELET COUNT (AUTO) 195 K/uL (179-408)
[2021-03-06 07:21] LABS: ALANINE AMINOTRANSFERASE 298 U/L (14-59); ALKALINE PHOSPHATASE 60 U/L (50-136); ASPARTATE AMINOTRANSFERASE 285 U/L (15-37); BILIRUBIN,TOTAL 0.8 mg/dL (0.2-1.0); CARBON DIOXIDE 26 mmol/L (21-32); CHLORIDE 109 mmol/L (98-107); CREATININE 1.5 mg/dL (0.6-1.3); GLUCOSE 73 mg/dL (74-106); MAGNESIUM 2.3 mg/dL (1.8-2.4); PHOSPHOROUS 3.5 mg/dL (2.5-4.9); POTASSIUM 5.1 mmol/L (3.5-5.1); TOTAL PROTEIN, SERUM 4.5 g/dL (6.4-8.2); UREA NITROGEN, BLOOD 70 mg/dL (7-18)
[2021-03-06 08:40] VITALS: BP 102/63
[2021-03-06] MEDS: ENSURE WITH FIBER 237 ML LIQUID (CHOCOLATE) PO SCH ×3 (09:00→17:00)
[2021-03-06] MEDS: LINZESS 290MCG CAPSULE PO SCH (09:23)
[2021-03-06] MEDS: METOPROLOL SUCCINATE XL 50 MG TAB.SR.24H PO SCH (09:24)
[2021-03-06] MEDS: CLOPIDOGREL 75 MG TABLET PO SCH (09:24)
[2021-03-06] MEDS: GLUCERNA SHAKE 237 ML CAN PO SCH ×3 (09:32→17:00)
[2021-03-06 10:58] VITALS: BP 114/68
--- NOTE | 2021-03-06 12:20 | NUR ---
Pt is a/o x 2-3, HR within normal limits today at 77. D/C'd telemetry per MD order. Bone marrow biopsy resulted with multiple myeloma confirmed. MD discussed with pt and family. No signs of acute distress, comfort measures provided, call light within reach. Family and caregiver at bedside with pt. Will continue to monitor.
[2021-03-06 15:34] VITALS: BP 115/67
--- NOTE | 2021-03-06 19:35 | NUR ---
Received with son at bedside. sleeping intermittently.
[2021-03-06 20:55] VITALS: BP 104/51
--- NOTE | 2021-03-06 21:36 | NUR ---
medication due given and patient noted to have a hard time swallowing water.
[2021-03-06] MEDS: DOCUSATE SODIUM 100 MG/10 ML LIQUID UDC PO SCH (21:38)
[2021-03-06] MEDS: SIMVASTATIN 20 MG TABLET PO SCH (21:39)
[2021-03-07 04:00] VITALS: BP 118/70
--- NOTE | 2021-03-07 04:46 | NUR ---
protonix dose change to suspension as the patient medication needs to be crushed,
--- NOTE | 2021-03-07 06:17 | NUR ---
asleep with the same ivf on.cleaned and kept dry
[2021-03-07] MEDS: LEVOTHYROXINE SODIUM 75 MCG TABLET PO SCH ×2 (06:42→06:47)
--- NOTE | 2021-03-07 06:48 | NUR ---
refused medication due. sleeping
[2021-03-07] MEDS ORDERED: PANTOPRAZOLE ORAL SUSPENSION 40 MG SUSPDR.PKT GT SCH (07:00)
[2021-03-07 08:00] VITALS: BP 95/53
[2021-03-07] MEDS: CLOPIDOGREL 75 MG TABLET PO SCH (08:48)
[2021-03-07] MEDS: METOPROLOL SUCCINATE XL 50 MG TAB.SR.24H PO SCH (08:48)
[2021-03-07] MEDS: LINZESS 290MCG CAPSULE PO SCH (08:49)
[2021-03-07] MEDS: PANTOPRAZOLE ORAL SUSPENSION 40 MG SUSPDR.PKT PO SCH (08:49)
--- NOTE | 2021-03-07 09:00 | NUR ---
CONFUSED AND DISORIENTED AND CONFUSED ABLE TO GIVE HER MEDICATIONS IN [facility] ALL NEEDS ANTICIPATED AND SATISFIED MAX ASSIST FOR ALL ADL ON O2 AT 2L/M BY NASAL CANULLA REMOVES CANULA MOST OF THE TIME WITH NO SOB AT THIS TIME SATS AT 93/92 HAS A PRIVATE UTILITY ENGINEER IN THE ROOM WAS ASSISTING WITH FEEDING HER.MADE COMFORTABLE WILL CONTINUE TO OBSERVE.3
[2021-03-07] MEDS: ENSURE WITH FIBER 237 ML LIQUID (CHOCOLATE) PO SCH ×3 (09:56→17:41)
[2021-03-07 12:05] VITALS: BP 134/87
[2021-03-07] MEDS: GLUCERNA SHAKE 237 ML CAN PO SCH (13:00)
--- NOTE | 2021-03-07 14:00 | NUR ---
PATIENT PULLED OUT HEPLOCK VERY HARD STICK CALLED DR GAONA TO INFORM HIM IF PATIENT STILL REQUIRES IVF THEN WILL NEED MIDLINE AWAITING FOR RETURN CALL.
[2021-03-07 15:59] VITALS: BP 13/52
--- NOTE | 2021-03-07 19:25 | NUR ---
Dr Garza in and informed that the patient is received with no iv acces/ with orders okay with no iv access
[2021-03-07 20:21] VITALS: BP 111/71
[2021-03-07] MEDS: SIMVASTATIN 20 MG TABLET PO SCH (22:01)
[2021-03-07] MEDS: DOCUSATE SODIUM 100 MG/10 ML LIQUID UDC PO SCH (22:01)
[2021-03-07] MEDS: TEMAZEPAM 15 MG CAPSULE PO PRN (23:11)
--- NOTE | 2021-03-07 23:23 | NUR ---
patient crying and moaning,unable to sleep. restoril dose given for sleep.
[2021-03-08 04:18] VITALS: BP_SYST 111; BP_SYST 98; BP_DIAS 56; BP_DIAS 63
[2021-03-08] MEDS: LEVOTHYROXINE SODIUM 75 MCG TABLET PO SCH (07:05)
[2021-03-08 07:15] LABS: HEMATOCRIT 25.9 % (31.2-41.9); MEAN CORPUSCULAR HEMOGLOBIN 31.4 uug (24.7-32.8); MEAN CORPUSCULAR VOLUME 95.3 fL (75.5-95.3); PLATELET COUNT (AUTO) 169 K/uL (179-408)
[2021-03-08 07:28] LABS: ALANINE AMINOTRANSFERASE 118 U/L (14-59); ALKALINE PHOSPHATASE 64 U/L (50-136); ASPARTATE AMINOTRANSFERASE 65 U/L (15-37); BILIRUBIN,TOTAL 0.6 mg/dL (0.2-1.0); CARBON DIOXIDE 20 mmol/L (21-32); CHLORIDE 108 mmol/L (98-107); CREATININE 1.4 mg/dL (0.6-1.3); MAGNESIUM 2.3 mg/dL (1.8-2.4); PHOSPHOROUS 3.5 mg/dL (2.5-4.9); UREA NITROGEN, BLOOD 77 mg/dL (7-18)
--- NOTE | 2021-03-08 07:51 | NUR ---
received resting arousable to stimulu. no s/sx sob or pain. comfortable. call light in reach. safety precautions in place.
[2021-03-08 07:57] LABS: GLUCOSE 49 mg/dL (74-106)
[2021-03-08 08:00] VITALS: BP 143/100
--- NOTE | 2021-03-08 08:04 | NUR ---
dr. root made aware of glucose 49 no new orders received at this time. Addendum: 03/08/21 at 0826 by LEANN LEIGH RN pt awake and responsive confused and not oriented which is her baseline. no resp distress noted. attempted to insert iv access but pt is very hardstick. dr. root is aware.
[2021-03-08] MEDS: METOPROLOL SUCCINATE XL 50 MG TAB.SR.24H PO SCH (09:14)
[2021-03-08] MEDS: CLOPIDOGREL 75 MG TABLET PO SCH (09:14)
[2021-03-08] MEDS: PANTOPRAZOLE ORAL SUSPENSION 40 MG SUSPDR.PKT PO SCH (09:14)
[2021-03-08] MEDS: LINZESS 290MCG CAPSULE PO SCH (09:16)
[2021-03-08] MEDS: ENSURE WITH FIBER 237 ML LIQUID (CHOCOLATE) PO SCH ×3 (09:17→17:09)
[2021-03-08] MEDS: GLUCERNA SHAKE 237 ML CAN PO SCH ×5 (09:17→17:09)
[2021-03-08 12:00] VITALS: BP 126/78
[2021-03-08] MEDS: MAG HYDROX/AL HYDROX/SIMETH 30 ML LIQUID UDC PO PRN ×2 (12:21→21:32)
--- NOTE | 2021-03-08 12:30 | NUR ---
Rechecked BS noted 94 mg/dl. No s/sx of hypoglycemia. Dr. Garza rounding and made aware.
--- NOTE | 2021-03-08 12:32 | NUR ---
glucerna prior shift undocumented.
[2021-03-08 16:45] VITALS: BP 96/51
--- NOTE | 2021-03-08 18:51 | NUR ---
resting in bed. no acute distress. needs attended. safety measures in place. call light in reach.
--- NOTE | 2021-03-08 19:00 | NUR ---
Received patient lying in bed. Awake, alert, oriented to person but not to place or time. Reoriented patient to place and time. No acute distress noted at this time. Safety precaution and comfort measures were initiated. Bed in locked position and call light button within reach.
[2021-03-08 20:12] VITALS: BP 119/59
--- NOTE | 2021-03-08 21:00 | NUR ---
Patient was restless and moaning, complained of having an upset stomach and difficulty in sleeping. PRN medications were given as ordered, pt tolerated them well. Will continue to monitor.
[2021-03-08] MEDS: DOCUSATE SODIUM 100 MG/10 ML LIQUID UDC PO SCH (21:32)
[2021-03-08] MEDS: TEMAZEPAM 15 MG CAPSULE PO PRN (21:32)
[2021-03-08] MEDS: SIMVASTATIN 20 MG TABLET PO SCH (21:32)
[2021-03-09 04:15] VITALS: BP 120/66
[2021-03-09] MEDS: LEVOTHYROXINE SODIUM 75 MCG TABLET PO SCH (06:23)
--- NOTE | 2021-03-09 07:06 | NUR ---
Patient slept through the night with no complaints. Patient currently on 2L O2 via NC, saturating at 97%. All due medications were given as ordered. All needs were attended to and met. Safety precautions and comfort measures were maintained. Will endorse to day shift.
[2021-03-09 07:24] LABS: HEMATOCRIT 26.2 % (31.2-41.9); MEAN CORPUSCULAR HEMOGLOBIN 31.2 uug (24.7-32.8); MEAN CORPUSCULAR VOLUME 95.5 fL (75.5-95.3); PLATELET COUNT (AUTO) 185 K/uL (179-408)
[2021-03-09 07:28] LABS: CARBON DIOXIDE 20 mmol/L (21-32); CHLORIDE 109 mmol/L (98-107); CREATININE 1.4 mg/dL (0.6-1.3); MAGNESIUM 2.4 mg/dL (1.8-2.4); PHOSPHOROUS 3.7 mg/dL (2.5-4.9); POTASSIUM 4.7 mmol/L (3.5-5.1); UREA NITROGEN, BLOOD 78 mg/dL (7-18)
--- NOTE | 2021-03-09 07:33 | NUR ---
received awake responsive to stimuli. no resp distress noted. o2 at 2lpm nc sat 95%. no sob or pain. safety measures in place. kept comfortable. call light in reach.
[2021-03-09 07:39] LABS: GLUCOSE 50 mg/dL (74-106)
[2021-03-09 08:02] VITALS: BP 128/71
[2021-03-09] MEDS: GLUCERNA SHAKE 237 ML CAN PO SCH ×3 (08:31→17:00)
[2021-03-09] MEDS: PANTOPRAZOLE ORAL SUSPENSION 40 MG SUSPDR.PKT PO SCH (08:31)
[2021-03-09] MEDS: LINZESS 290MCG CAPSULE PO SCH (08:31)
[2021-03-09] MEDS: ENSURE WITH FIBER 237 ML LIQUID (CHOCOLATE) PO SCH ×3 (08:31→17:00)
[2021-03-09] MEDS: METOPROLOL SUCCINATE XL 50 MG TAB.SR.24H PO SCH (08:32)
--- NOTE | 2021-03-09 09:52 | NUR ---
received call from lab this morning of glucose 50 mg/dl. pt noted alert and responsive at baseline. no sob or pain noted. gave orange juice and assisted with breakfast. pt eats very little, refusing at times. continued to encourage. bs rechecked at this time 68 mg/dl. dr. root is aware no new orders received. will cont to monitor.
[2021-03-09] MEDS: IV 1/2NS 1000 ML 1,000 ML IV PRN (11:12)
--- NOTE | 2021-03-09 11:17 | NUR ---
able to insert iv on right forearm 22gm. in hydration resumed. dtr at bedside aware.
--- NOTE | 2021-03-09 14:42 | NUR ---
obtained home meds from pharmacy and given to phyllis lagunas in the room with pt.
[2021-03-09 15:29] VITALS: BP 110/76
--- NOTE | 2021-03-09 15:43 | NUR ---
Called [facility] and gave report to Yudith VIERA.
[2021-03-09] MEDS ORDERED: DOCU50LI PO (16:01)
[2021-03-09] MEDS ORDERED: TEMA15CA PO (16:01)
[2021-03-09] MEDS ORDERED: MULT-594 PO (16:01)
[2021-03-09] MEDS ORDERED: METO-357 PO (16:01)
[2021-03-09] MEDS ORDERED: ONDA4TAB5 PO (16:01)
[2021-03-09] MEDS ORDERED: Lactose-Free Food/Fiber PO (16:01)
[2021-03-09] MEDS ORDERED: ACET325T53 PO (16:01)
[2021-03-09] MEDS ORDERED: PANT40SU2 PO (16:01)
[2021-03-09] MEDS ORDERED: BISA10SU61 RC (16:01)
--- NOTE | 2021-03-09 17:00 | NUR ---
Discharged to [facility] in stable condition. Picked up by [facility] [employer] from [facility]. No acute distress. Dtr at bedside and went with pt. Relayed discharge/ follow-up instructions to the dtr as well and she verbalized understanding. Left via gurney.
== END 2021-03-09 17:00 | DRG 280 ==
LOC: TELE3 15:13 → MEDSURG3 03-06 07:30
PROVIDERS: ADMIT Internal Medicine; ATTEND Internal Medicine
DX: I11.0 Hypertensive heart disease with heart failure (principal); I21.A1 Myocardial infarction type 2; G93.41 Metabolic encephalopathy; N17.0 Acute kidney failure with tubular necrosis; I50.31 Acute diastolic (congestive) heart failure; I47.1 Supraventricular tachycardia; C90.00 Multiple myeloma not having achieved remission; D68.59 Other primary thrombophilia; E44.0 Moderate protein-calorie malnutrition; Z20.822 Contact with and (suspected) exposure to COVID-19; Z85.3 Personal history of malignant neoplasm of breast; R19.5 Other fecal abnormalities; D53.9 Nutritional anemia, unspecified; E04.1 Nontoxic single thyroid nodule; E03.9 Hypothyroidism, unspecified; M19.012 Primary osteoarthritis, left shoulder; M19.011 Primary osteoarthritis, right shoulder; M75.52 Bursitis of left shoulder; M75.51 Bursitis of right shoulder; E78.5 Hyperlipidemia, unspecified; E86.0 Dehydration; F32.A Depression, unspecified; I25.10 Atherosclerotic heart disease of native coronary artery without angina pectoris; I35.8 Other nonrheumatic aortic valve disorders; I77.810 Thoracic aortic ectasia; I70.0 Atherosclerosis of aorta; M81.0 Age-related osteoporosis without current pathological fracture; E83.51 Hypocalcemia; S42.132D Displaced fracture of coracoid process, left shoulder, subsequent encounter for fracture with routine healing; X58.XXXD Exposure to other specified factors, subsequent encounter; Z79.899 Other long term (current) drug therapy; Z91.81 History of falling; Z96.641 Presence of right artificial hip joint
CPT/HCPCS: 36415; 70030-TC; 71045; 74018; 83735; 84100; 84443; 85025; 93005; 97161; A6209; G0378; J1940; J2405; J3490; Q0162